=== PATIENT | female | born 1930 | race Caucasian/White ===

== ENCOUNTER 2016-12-16 01:36 | Emergency (ER) | payer MEDICARE, OTHER ==
[2016-12-16] MEDS ORDERED: ACETAMINOPHEN 325 MG TABLET PO ONE (04:19)
--- NOTE | 2016-12-16 04:21 | ER Document Report ---
ED Fall - General Chief Complaint: Fall Injury Stated Complaint: FALL LEFT ARM PAIN Time seen by provider: 04:20 Mode of Arrival: Ambulatory Information source: Patient TRAVEL OUTSIDE OF THE [place] IN LAST 30 DAYS: No - HPI Patient complains to provider of: trip and fall Occurred: Just prior to arrival Where: Home Context: Tripped Associated symptoms: None Location of injury/pain: Upper extremity, Lower extremity Quality of pain: Achy Severity: Mild Pain Level: 1 Notes: Patient is an 86-year-old female who presents to the emergency room complaining of trip and fall that occurred at home just prior to arrival, states she fell to the floor, landing on her left side, causing bruising and mild abrasions to her left upper extremity and just below her left knee, she denies a head injury or loss of consciousness, no chest pain or shortness of breath, last tetanus shot is up-to-date - Related data Allergies/Adverse Reactions: diazepam [From Valium] Allergy (Verified 12/16/16 01:58) fenoprofen calcium [From Nalfon] Allergy (Verified 12/16/16 01:58) oxaprozin [From Daypro] Allergy (Verified 12/16/16 01:58) Penicillins Allergy (Verified 12/16/16 01:58) Sulfa (Sulfonamide Antibiotics) Allergy (Verified 12/16/16 01:58) Past Medical History - General Information source: Patient - Social History Smoking Status: Never Smoker Chew tobacco use (# tins/day): No Frequency of alcohol use: None Drug Abuse: None Family History: None Patient has suicidal ideation: No Patient has homicidal ideation: No - Past Medical History Cardiac Medical History: Reports: Hx Hypertension Denies: Hx Coronary Artery Disease, Hx Heart Attack Pulmonary Medical History: Reports: Hx COPD Denies: Hx Asthma, Hx Bronchitis, Hx Pneumonia Neurological Medical History: Denies: Hx Cerebrovascular Accident, Hx Seizures Renal/ Medical History: Denies: Hx Peritoneal Dialysis Musculoskeltal Medical History: Denies Hx Arthritis Past Surgical History: Denies: Hx Hysterectomy, Hx Pacemaker - Immunizations Hx Diphtheria, Pertussis, Tetanus Vaccination: Yes Hx Pneumococcal Vaccination: 07/19/14 Review of Systems - Review of Systems Constitutional: No symptoms reported EENT: No symptoms reported Cardiovascular: No symptoms reported Respiratory: No symptoms reported Gastrointestinal: No symptoms reported Genitourinary: No symptoms reported Female Genitourinary: No symptoms reported Musculoskeletal: See HPI Skin: See HPI Hematologic/Lymphatic: Easy bruising - Patient takes Plavix Neurological/Psychological: No symptoms reported -: Yes All other systems reviewed and negative Physical Exam - Vital signs Vitals: Temp Pulse Resp BP Pulse Ox 98.2 F 93 18 179/96 H 96 12/16/16 01:50 12/16/16 01:50 12/16/16 01:50 12/16/16 01:50 12/16/16 01:50 Interpretation: Normal - General General appearance: Appears well, Alert - HEENT Head: Normocephalic, Atraumatic Eyes: Normal Pupils: PERRL - Respiratory Respiratory status: No respiratory distress Chest status: Nontender Breath sounds: Normal Chest palpation: Normal - Cardiovascular Rhythm: Regular Heart sounds: Normal auscultation Murmur: No - Abdominal Inspection: Normal Distension: No distension Bowel sounds: Normal Tenderness: Nontender Organomegaly: No organomegaly - Back Back: Normal, Nontender - Extremities General upper extremity: Normal ROM, Normal temperature General lower extremity: Nontender, Normal ROM, Normal temperature, Normal weight bearing. No: Ayana's sign Arm: Other - Patient with mild abrasions and ecchymoses on the dorsal surface of the left forearm and left upper arm, distal sensation and motor is intact, there is full range of motion at the wrist, the elbow and the shoulder, 2+ radial pulses Knee: Ecchymosis - Patient with ecchymosis just distal to the left patella anteriorly, mild tenderness to palpate, distal sensation and motor is intact - Neurological Neuro grossly intact: Yes Cognition: Normal Orientation: AAOx4 Sharlene Coma Scale Eye Opening: Spontaneous Sharlene Coma Scale Verbal: Oriented [place] Coma Scale Motor: Obeys Commands Sharlene Coma Scale Total: 15 Speech: Normal Motor strength normal: LUE, RUE, LLE, RLE Sensory: Normal - Psychological Associated symptoms: Normal affect, Normal mood - Skin Skin Temperature: Warm Skin Moisture: Dry Skin Color: Normal Course - Re-evaluation Re-evalutation: 12/16/16 04:39 Imaging shows no evidence of fracture or dislocation, patient was provided with Tylenol, advised ice and elevate affected extremities, follow up with primary care provider or return if symptoms worsen, patient and daughter at bedside acknowledge understanding and agreement with this plan - Vital Signs Vital signs: Temp Pulse Resp BP Pulse Ox 98.2 F 93 18 179/96 H 96 12/16/16 01:50 12/16/16 01:50 12/16/16 01:50 12/16/16 01:50 12/16/16 01:50 - Diagnostic Test Radiology reviewed: Image reviewed, Reports reviewed Discharge - Discharge Clinical Impression: Abrasion Contusion of left arm Qualifiers: Encounter type: initial encounter Qualified Code(s): S40.022A - Contusion of left upper arm, initial encounter Contusion of left lower leg Qualifiers: Encounter type: initial encounter Qualified Code(s): S80.12XA - Contusion of left lower leg, initial encounter Condition: Stable Disposition: HOME, SELF-CARE Instructions: Contusion ([facility]), Abrasions ([facility]), Ice & Elevation ([facility]) Additional Instructions: Follow up with your primary care provider in one to 2 days. Return to the emergency room immediately if symptoms worsen or any additional concerns. Forms: Return to Work
[2016-12-16 04:54] VITALS: BP 128/88
== END 2016-12-16 04:49 | disposition home or self-care (01) ==
LOC: ER 01:36
DX: S80.12XA Contusion of left lower leg, initial encounter (principal); S50.12XA Contusion of left forearm, initial encounter; S40.022A Contusion of left upper arm, initial encounter; W19.XXXA Unspecified fall, initial encounter; Y92.009 Unspecified place in unspecified non-institutional (private) residence as the place of occurrence of the external cause; I10 Essential (primary) hypertension; J44.9 Chronic obstructive pulmonary disease, unspecified; Z79.02 Long term (current) use of antithrombotics/antiplatelets; Z88.8 Allergy status to other drugs, medicaments and biological substances; Z88.0 Allergy status to penicillin; Z88.2 Allergy status to sulfonamides
CPT/HCPCS: 99283

== ENCOUNTER → 2017-01-01 | Outpatient (CLI) | payer MEDICARE, OTHER | LOC: RAD 07:36 | PROVIDERS: ATTEND Specialist | DX: R19.01 Right upper quadrant abdominal swelling, mass and lump (principal); R13.10 Dysphagia, unspecified | CPT/HCPCS: 74220; 76705 ==

== ENCOUNTER 2017-03-03 15:02 | Emergency (ER) | payer MEDICARE, OTHER ==
[2017-03-03] MEDS ORDERED: HYDROCODONE/ACETAMINOPHEN 5-325 MG TABLET PO ONE (15:42)
--- NOTE | 2017-03-03 15:50 | ER Document Report ---
ED Medical Screen (RME) - General Chief Complaint: Leg Pain Stated Complaint: LEFT LEG PAIN Time Seen by Provider: 03/03/17 15:38 Information source: Patient Notes: 87-year-old female who states pain to her left inner thigh and left tibia/ fibula. Patient denies any trauma. Patient does states she had a history of some cellulitis recently but states that it is "much improved". She denies any specific calf pain, or leg swelling. She denies any pain in the low back or hip. She denies any weakness or numbness to her leg. She does state that it started when she "stood up". TRAVEL OUTSIDE OF THE [place] IN LAST 30 DAYS: No - Related Data Allergies/Adverse Reactions: diazepam [From Valium] Allergy (Verified 03/03/17 15:21) fenoprofen calcium [From Nalfon] Allergy (Verified 03/03/17 15:21) oxaprozin [From Daypro] Allergy (Verified 03/03/17 15:21) Penicillins Allergy (Verified 03/03/17 15:21) Sulfa (Sulfonamide Antibiotics) Allergy (Verified 03/03/17 15:21) Past Medical History - Past Medical History Cardiac Medical History: Reports: Hx Hypertension Denies: Hx Coronary Artery Disease, Hx Heart Attack Pulmonary Medical History: Reports: Hx COPD Denies: Hx Asthma, Hx Bronchitis, Hx Pneumonia Neurological Medical History: Denies: Hx Cerebrovascular Accident, Hx Seizures Renal/ Medical History: Denies: Hx Peritoneal Dialysis Musculoskeltal Medical History: Denies Hx Arthritis Past Surgical History: Denies: Hx Hysterectomy, Hx Pacemaker - Immunizations Hx Diphtheria, Pertussis, Tetanus Vaccination: Yes Physical Exam - Vital signs Vitals: Temp Pulse Resp BP Pulse Ox 98.3 F 94 16 164/69 H 96 03/03/17 15:26 03/03/17 15:26 03/03/17 15:26 03/03/17 15:26 03/03/17 15:26 Course - Vital Signs Vital signs: Temp Pulse Resp BP Pulse Ox 98.3 F 94 16 164/69 H 96 03/03/17 15:26 03/03/17 15:26 03/03/17 15:26 03/03/17 15:26 03/03/17 15:26
[2017-03-03 16:52] LABS: ANION GAP 11 (5-19); BLOOD UREA NITROGEN 23 mg/dL (7-20); CARBON DIOXIDE 30 mmol/L (22-30); CHLORIDE 99 mmol/L (98-107); CREATININE RESULT 0.73 mg/dL (0.52-1.25); GLUCOSE 93 mg/dL (75-110); POTASSIUM 3.8 mmol/L (3.6-5.0); SODIUM 139.8 mmol/L (137-145)
[2017-03-03 16:58] LABS: ABSOLUTE EOSINOPHILS # (AUTO) 0.1 10^3/uL (0.0-0.6); ABSOLUTE LYMPHOCYTES (AUTO) 1.6 10^3/uL (0.5-4.7); ABSOLUTE MONOCYTES (AUTO) 0.7 10^3/uL (0.1-1.4); ABSOLUTE NEUT (AUTO) 2.7 10^3/uL (1.7-8.2); BASOPHILS % (AUTO) 0.6 % (0-2); EOSINOPHILS % (AUTO) 1.2 % (0-6); HEMOGLOBIN 13.5 g/dL (12.0-15.5); HGB HCT DIFFERENCE 0.5; LYMPHOCYTES % (AUTO) 31.2 % (13-45); MEAN CORPUSCULAR HEMOGLOBIN 32.7 pg (27.0-33.4); MEAN CORPUSCULAR HGB CONC 33.7 g/dL (32.0-36.0); MEAN CORPUSCULAR VOLUME 97 fl (80-97); MONOCYTES % (AUTO) 14.2 % (3-13); RED BLOOD COUNT 4.12 10^6/uL (3.72-5.28); RED CELL DISTRIBUTION WIDTH 13.5 % (11.5-14.0); SEGMENTED NEUTROPHILS % (AUTO) 52.8 % (42-78); WHITE BLOOD COUNT 5.1 10^3/uL (4.0-10.5)
--- NOTE | 2017-03-03 17:29 | XCELERA REPORT ---
[address] [address] Lower Extremity Venous Evaluation Name: TRINIDAD BALDWIN Age: 87 yrs Gender: Female : 1930 Patient Status: Preadmit Patient Location: ER Study Date: 03/03/2017 04:09 PM Procedure: Color flow and duplex imaging of the veins of the left lower extremity as well as the right Common Femoral vein. Reason For Study: left leg pain Ordering Physician: DAMIR YU Performed By: Guero Harris Right Sided Venous Evaluation The right common femoral vein is fully compressible. Spontaneous and phasic flow is present in the right common femoral vein. Left Sided Venous Evaluation Non compressible area with no Colour flow in a segment of one of two Peroneal veins. Otherwise normal vessel filling wall to wall, compression and augmentation as well as Colour flow down to the infrageniculate veins. Critical Findings Discussed with Jerel in the Er at about 1700. Interpretation Summary Very tiny area of Deep vein thrombosis in the left leg. : DAMIR YU > Sam Mejia
[2017-03-03 18:34] LABS: PROTHROMBIN TIME 14.2 SEC (11.4-15.4)
[2017-03-03] MEDS ORDERED: RIVAROXABAN 15 MG TABLET PO ONE (18:56)
--- NOTE | 2017-03-03 18:56 | ER Document Report ---
ED Extremity Problem, Lower - General Chief Complaint: Leg Pain Stated Complaint: LEFT LEG PAIN Time Seen by Provider: 03/03/17 15:38 Mode of Arrival: Ambulatory Information source: Patient TRAVEL OUTSIDE OF THE [place] IN LAST 30 DAYS: No - HPI Patient complains to provider of: Pain, Swelling Location: Leg Occurred: This afternoon Onset/Duration: Sudden Quality of pain: Achy Severity: Mild Pain Level: 2 Recent injury: No Associated symptoms: denies: Chest pain, Short of breath Exacerbated by: Movement Relieved by: Nothing Notes: Patient is an 87-year-old female with a history of A. fib and previous DVTs, who presents to the emergency Pain that started at approximately 3 PM today, she denies any shortness of breath or chest pain, has a history of DVTs with previous symptoms previously, her productive was recently decreased from 150 twice a day to 275 twice a day, she denies any other complaints, no injury or trauma - Related Data Allergies/Adverse Reactions: diazepam [From Valium] Allergy (Verified 03/03/17 15:21) fenoprofen calcium [From Nalfon] Allergy (Verified 03/03/17 15:21) oxaprozin [From Daypro] Allergy (Verified 03/03/17 15:21) Penicillins Allergy (Verified 03/03/17 15:21) Sulfa (Sulfonamide Antibiotics) Allergy (Verified 03/03/17 15:21) Past Medical History - General Information source: Patient - Social History Smoking Status: Never Smoker Family History: None Patient has suicidal ideation: No Patient has homicidal ideation: No - Past Medical History Cardiac Medical History: Reports: Hx Hypertension Denies: Hx Coronary Artery Disease, Hx Heart Attack Pulmonary Medical History: Reports: Hx COPD Denies: Hx Asthma, Hx Bronchitis, Hx Pneumonia Neurological Medical History: Denies: Hx Cerebrovascular Accident, Hx Seizures Renal/ Medical History: Denies: Hx Peritoneal Dialysis Musculoskeltal Medical History: Denies Hx Arthritis Past Surgical History: Denies: Hx Hysterectomy, Hx Pacemaker - Immunizations Hx Diphtheria, Pertussis, Tetanus Vaccination: Yes Hx Pneumococcal Vaccination: 07/19/14 Review of Systems - Review of Systems Constitutional: No symptoms reported EENT: No symptoms reported Cardiovascular: No symptoms reported Respiratory: No symptoms reported Gastrointestinal: No symptoms reported Genitourinary: No symptoms reported Female Genitourinary: No symptoms reported Musculoskeletal: See HPI Skin: No symptoms reported Hematologic/Lymphatic: No symptoms reported Neurological/Psychological: No symptoms reported -: Yes All other systems reviewed and negative Physical Exam - Vital signs Vitals: Temp Pulse Resp BP Pulse Ox 98.3 F 94 16 164/69 H 96 03/03/17 15:26 03/03/17 15:26 03/03/17 15:26 03/03/17 15:26 03/03/17 15:26 Interpretation: Normal - General General appearance: Appears well, Alert - HEENT Head: Normocephalic, Atraumatic Eyes: Normal Pupils: PERRL - Respiratory Respiratory status: No respiratory distress Chest status: Nontender Breath sounds: Normal Chest palpation: Normal - Cardiovascular Rhythm: Regular Heart sounds: Normal auscultation Murmur: No - Abdominal Inspection: Normal Distension: No distension Bowel sounds: Normal Tenderness: Nontender Organomegaly: No organomegaly - Back Back: Normal, Nontender - Extremities General upper extremity: Normal inspection, Nontender, Normal color, Normal ROM , Normal temperature General lower extremity: Normal inspection, Normal color, Normal ROM, Normal temperature. No: Ayana's sign Calf: Tender - Left calf tenderness - Neurological Neuro grossly intact: Yes Cognition: Normal Orientation: AAOx4 Sharlene Coma Scale Eye Opening: Spontaneous Sharlene Coma Scale Verbal: Oriented Sharlene Coma Scale Motor: Obeys Commands [place] Coma Scale Total: 15 Speech: Normal Motor strength normal: LUE, RUE, LLE, RLE Sensory: Normal - Psychological Associated symptoms: Normal affect, Normal mood - Skin Skin Temperature: Warm Skin Moisture: Dry Skin Color: Normal Course - Re-evaluation Re-evalutation: 03/03/17 18:53 Patient was discussed with on-call certified midwife, Dr. Nicolas, who recommends her productive be changed to Xarelto and she can see the patient in the office next week 03/03/17 19:00 This plan was discussed with patient and daughter at bedside who acknowledge understanding and agreement, patient was advised to stop taking pradaxa - Vital Signs Vital signs: Temp Pulse Resp BP Pulse Ox 98.3 F 94 16 164/69 H 96 03/03/17 15:26 03/03/17 15:26 03/03/17 15:26 03/03/17 15:26 03/03/17 15:26 - Laboratory Result Diagrams: 03/03/17 16:00 03/03/17 16:00 Laboratory results interpreted by me: 03/03/17 03/03/17 16:00 16:00 Plt Count 131 L Monocytes % 14.2 H BUN 23 H Discharge - Discharge Clinical Impression: DVT (deep venous thrombosis) Qualifiers: DVT location: lower extremity Affected thrombotic vein of extremity: other lower extremity vein Laterality: left Chronicity: acute Qualified Code(s): I82.492 - Acute embolism and thrombosis of other specified deep vein of left lower extremity Instructions: DVT Outpatient Treatment ([facility]) Additional Instructions: Follow up with your primary care provider, chauffeur and certified midwife within the next week. Return to the emergency room immediately if symptoms worsen or any additional concerns. Prescriptions: Rivaroxaban [Xarelto 15 mg Tablet] 15 mg PO BID #42 tablet Referrals: CORIE NICOLAS MD [ACTIVE STAFF] - Follow up as needed
[2017-03-03 19:17] VITALS: BP 114/72
== END 2017-03-03 19:15 | disposition home or self-care (01) ==
LOC: ER 15:02
DX: I82.492 Acute embolism and thrombosis of other specified deep vein of left lower extremity (principal); M79.605 Pain in left leg
CPT/HCPCS: 99284; 36415; 85025; 85610; 80048; 93971 ×2; A9270 ×2

== ENCOUNTER 2017-03-18 13:49 | Emergency (ER) | payer MEDICARE, OTHER ==
--- NOTE | 2017-03-18 16:58 | ER Document Report ---
ED Medical Screen (RME) - General Chief Complaint: Leg Swelling Stated Complaint: RED STREAKING ON LEG Time Seen by Provider: 03/18/17 16:52 Notes: 87 yo female c/o redness to left lower leg x 1 day. pt was diagnosed with DVT on Pradaxa. pt woke with increased redness to lower leg this am. leg aches , but otherwise on increased pain. [facility]. 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 [employer] Dr Rome Denies chest pain or shortness of breath. No abnormal bleeding. + hx/o A fib TRAVEL OUTSIDE OF THE [place] IN LAST 30 DAYS: No - Related Data Allergies/Adverse Reactions: diazepam [From Valium] Allergy (Verified 03/03/17 15:21) fenoprofen calcium [From Nalfon] Allergy (Verified 03/03/17 15:21) oxaprozin [From Daypro] Allergy (Verified 03/03/17 15:21) Penicillins Allergy (Verified 03/03/17 15:21) Sulfa (Sulfonamide Antibiotics) Allergy (Verified 03/03/17 15:21) Past Medical History - Past Medical History Cardiac Medical History: Reports: Hx Hypertension Denies: Hx Coronary Artery Disease, Hx Heart Attack Pulmonary Medical History: Reports: Hx COPD Denies: Hx Asthma, Hx Bronchitis, Hx Pneumonia Neurological Medical History: Denies: Hx Cerebrovascular Accident, Hx Seizures Renal/ Medical History: Denies: Hx Peritoneal Dialysis Musculoskeltal Medical History: Denies Hx Arthritis Past Surgical History: Denies: Hx Hysterectomy, Hx Pacemaker - Immunizations Hx Diphtheria, Pertussis, Tetanus Vaccination: Yes Physical Exam - Vital signs Vitals: Temp Pulse Resp BP Pulse Ox 98.1 F 71 16 160/77 H 95 03/18/17 14:27 03/18/17 14:27 03/18/17 14:27 03/18/17 14:27 03/18/17 14:27 Course - Vital Signs Vital signs: Temp Pulse Resp BP Pulse Ox 98.1 F 71 16 160/77 H 95 03/18/17 14:27 03/18/17 14:27 03/18/17 14:27 03/18/17 14:27 03/18/17 14:27
[2017-03-18 17:36] LABS: ABSOLUTE EOSINOPHILS # (AUTO) 0.1 10^3/uL (0.0-0.6); ABSOLUTE LYMPHOCYTES (AUTO) 1.8 10^3/uL (0.5-4.7); ABSOLUTE MONOCYTES (AUTO) 0.7 10^3/uL (0.1-1.4); ABSOLUTE NEUT (AUTO) 2.5 10^3/uL (1.7-8.2); BASOPHILS % (AUTO) 0.5 % (0-2); EOSINOPHILS % (AUTO) 1.3 % (0-6); MEAN CORPUSCULAR HGB CONC 33.4 g/dL (32.0-36.0); MEAN CORPUSCULAR VOLUME 99 fl (80-97); MONOCYTES % (AUTO) 13.3 % (3-13); RED BLOOD COUNT 4.25 10^6/uL (3.72-5.28); RED CELL DISTRIBUTION WIDTH 13.5 % (11.5-14.0); SEGMENTED NEUTROPHILS % (AUTO) 49.9 % (42-78); WHITE BLOOD COUNT 5.1 10^3/uL (4.0-10.5)
[2017-03-18 17:39] LABS: PROTHROMBIN TIME 14.1 SEC (11.4-15.4)
[2017-03-18 18:00] LABS: ALANINE AMINOTRANSFERASE 36 U/L (9-52); ALBUMIN 4.2 g/dL (3.5-5.0); ALKALINE PHOSPHATASE 93 U/L (38-126); ANION GAP 7 (5-19); ASPARTATE AMINO TRANSFERASE 34 U/L (14-36); BLOOD UREA NITROGEN 16 mg/dL (7-20); CALCIUM 9.6 mg/dL (8.4-10.2); CARBON DIOXIDE 33 mmol/L (22-30); CHLORIDE 99 mmol/L (98-107); CREATININE RESULT 0.67 mg/dL (0.52-1.25); GLUCOSE 92 mg/dL (75-110); POTASSIUM 4.2 mmol/L (3.6-5.0); SODIUM 139.4 mmol/L (137-145)
[2017-03-18 18:01] LABS: BILIRUBIN,DIRECT 0.1 mg/dL (0.0-0.4); BILIRUBIN,TOTAL 0.8 mg/dL (0.2-1.3); TOTAL PROTEIN 7.2 g/dL (6.3-8.2)
--- NOTE | 2017-03-18 20:33 | ER Document Report ---
ED General - General Chief Complaint: Leg Swelling Stated Complaint: RED STREAKING ON LEG Time Seen by Provider: 03/18/17 16:52 Notes: Patient is an 87-year-old female with past medical history of atrial fibrillation and a DVT of the left lower extremity diagnosed 2 weeks ago currently on dabigatran who presents with concerns of increased discoloration of the calf of her left lower extremity. The daughter is concerned that this could indicate the beginning of a cellulitis the patient was brought to the emergency department for further assessment. This discoloration occurred over 24 hours. The patient herself denies any actual symptoms including any pain to the area. She has not noted anything seem to prompt a color change in her skin. She has not seen her primary care doctor regarding today's concerns. She has been taking all anticoagulation as directed she denies any pain to the extremity, streaking redness, fever or constitutional symptoms. TRAVEL OUTSIDE OF THE [place] IN LAST 30 DAYS: No - Related Data Allergies/Adverse Reactions: diazepam [From Valium] Allergy (Verified 03/03/17 15:21) fenoprofen calcium [From Nalfon] Allergy (Verified 03/03/17 15:21) oxaprozin [From Daypro] Allergy (Verified 03/03/17 15:21) Penicillins Allergy (Verified 03/03/17 15:21) Sulfa (Sulfonamide Antibiotics) Allergy (Verified 03/03/17 15:21) Past Medical History - General Information source: Patient - Social History Smoking Status: Never Smoker Frequency of alcohol use: None Drug Abuse: None Lives with: Family Family History: Reviewed & Not Pertinent Patient has suicidal ideation: No Patient has homicidal ideation: No - Past Medical History Cardiac Medical History: Reports: Hx Atrial Fibrillation, Hx Hypertension Denies: Hx Coronary Artery Disease, Hx Heart Attack Pulmonary Medical History: Reports: Hx COPD Denies: Hx Asthma, Hx Bronchitis, Hx Pneumonia Neurological Medical History: Denies: Hx Cerebrovascular Accident, Hx Seizures Renal/ Medical History: Denies: Hx Peritoneal Dialysis Musculoskeltal Medical History: Denies Hx Arthritis Past Surgical History: Denies: Hx Hysterectomy, Hx Pacemaker - Immunizations Hx Diphtheria, Pertussis, Tetanus Vaccination: Yes Hx Pneumococcal Vaccination: 07/19/14 Review of Systems - Review of Systems Notes: Constitutional: Negative for fever. HENT: Negative for sore throat. Eyes: Negative for visual changes. Cardiovascular: Negative for chest pain. Respiratory: Negative for shortness of breath. Gastrointestinal: Negative for abdominal pain, vomiting or diarrhea. Genitourinary: Negative for dysuria. Musculoskeletal: Negative for back pain. Skin: Positive for discoloration of the left lower extremity Neurological: Negative for headaches, weakness or numbness. 10 point ROS negative except as marked above and in HPI. Physical Exam - Vital signs Vitals: Temp Pulse Resp BP Pulse Ox 98.1 F 71 16 160/77 H 95 03/18/17 14:27 03/18/17 14:27 03/18/17 14:27 03/18/17 14:27 03/18/17 14:27 Interpretation: Hypertensive Notes: PHYSICAL EXAMINATION: GENERAL: Well-appearing, well-nourished and in no acute distress. HEAD: Atraumatic, normocephalic. EYES: Pupils equal round and reactive to light, extraocular movements intact, sclera anicteric, conjunctiva are normal. ENT: nares patent, oropharynx clear without exudates. Moist mucous membranes. NECK: Normal range of motion, supple without lymphadenopathy LUNGS: Breath sounds clear to auscultation bilaterally and equal. No wheezes rales or rhonchi. HEART: Regular rate and rhythm without murmurs ABDOMEN: Soft, nontender, normoactive bowel sounds. No guarding, no rebound. No masses appreciated. EXTREMITIES: Normal range of motion, bruising of the distal left lower extremity below the level of the knee without any warmth, pain or appreciable edema NEUROLOGICAL: No focal neurological deficits. Moves all extremities spontaneously and on command. PSYCH: Normal mood, normal affect. SKIN: Warm, Dry, normal turgor, no rashes or lesions noted. Course - Re-evaluation Re-evalutation: 03/18/17 20:33 Patient presents with concerns of left lower extremity discoloration which is different today than yesterday. She does have a history of 2 DVTs in this extremity and is currently on dabigatran for this. She has no pain to the area and it is not clinically consistent with an acute cellulitis. This appears more like blood breakdown with movement towards the more posterior aspect of the leg. A repeat venous Doppler study does not show any remaining clot and I suspect the clot has involved in the setting of patient going on to a therapeutic dose of dabigatran. The remainder of her laboratories are unremarkable. I have recommended the patient continue her anticoagulation and follow-up with her primary care doctor. At this time will discharge with return precautions and follow-up recommendations. Verbal discharge instructions given a the bedside and opportunity for questions given. Medication warnings reviewed. Patient is in agreement with this plan and has verbalized understanding of return precautions and the need for primary care follow-up in the next 24-72 hours. - Vital Signs Vital signs: Temp Pulse Resp BP Pulse Ox 98.0 F 74 17 162/88 H 95 03/18/17 20:47 03/18/17 20:47 03/18/17 20:47 03/18/17 20:47 03/18/17 20:47 - Laboratory Result Diagrams: 03/18/17 17:15 03/18/17 17:15 Laboratory results interpreted by me: 03/18/17 03/18/17 17:15 17:15 MCV 99 H Plt Count 145 L Monocytes % 13.3 H Carbon Dioxide 33 H - Diagnostic Test Radiology reviewed: Reports reviewed Discharge - Discharge Clinical Impression: Lower extremity edema Condition: Good Disposition: HOME, SELF-CARE Additional Instructions: Your ultrasound shows that the clot has since resolved. Continue the dabigatran as prescribed. Follow-up with your primary doctor. Return for any additional concerns you may have. Referrals: ANGEL CARUSO, [Primary Care Provider] - Follow up as needed
--- NOTE | 2017-03-18 20:44 | RADIOLOGY REPORT (SQ) ---
EXAM DESCRIPTION: VENOUS UNILATERAL LOWER COMPLETED DATE/TIME: 03/18/2017 8:37 pm REASON FOR STUDY: recent DVT left leg, increased redness today COMPARISON: None. TECHNIQUE: Dynamic and static sargent scale and color images acquired of the right leg venous system. S elected spectral images acquired with additional compression and augmentation maneuvers. The contrala teral common femoral vein and saphenofemoral junction were also imaged. Images stored on PACS. LIMITATIONS: None. FINDINGS: COMMON FEMORAL: Normal phasicity, compression and augmentation. No visualized echogenic ma terial on sargent scale. No defects on color images. FEMORAL: Normal compression and augmentation. No visualized echogenic material on sargent scale. No defe cts on color images. POPLITEAL: Normal compression, augmentation. No visualized echogenic material on sargent scale. No defec ts on color images. CALF VESSELS: Normal compression, augmentation. No visualized echogenic material on sargent scale. No de fects on color images. GSV and SSV: Normal compression, augmentation. No visualized echogenic material on sargent scale. No def ects on color images. ANY DEEP VENOUS INSUFFICIENCY: Not evaluated. ANY EVIDENCE OF POPLITEAL CYST: No. OTHER: No other significant finding. CONTRALATERAL COMMON FEMORAL VEIN AND SAPHENOFEMORAL JUNCTION: Normal phasicity, compression and augmentation. No visualized echogenic material on sargent scale. No de fects on color images. IMPRESSION: NO EVIDENCE DVT OR SVT IN THE RIGHT LEG. TECHNICAL DOCUMENTATION: JOB ID: [id number] [employer]- All Rights Reserved
[2017-03-18 20:53] VITALS: BP 162/88
== END 2017-03-18 20:53 | disposition home or self-care (01) ==
LOC: ER 13:49
DX: R60.0 Localized edema (principal); L81.9 Disorder of pigmentation, unspecified; I10 Essential (primary) hypertension; J44.9 Chronic obstructive pulmonary disease, unspecified; Z86.718 Personal history of other venous thrombosis and embolism; Z79.02 Long term (current) use of antithrombotics/antiplatelets; Z88.8 Allergy status to other drugs, medicaments and biological substances; Z88.0 Allergy status to penicillin; Z88.2 Allergy status to sulfonamides
CPT/HCPCS: 36415; 80053; 85025; 85610; 93971; 99284

== ENCOUNTER → 2017-06-03 | Outpatient (CLI) | payer MEDICARE, OTHER ==
--- NOTE | 2017-06-05 13:57 | WOMENS IMAGING REPORT ---
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 LIMITATIONS: None. FINDINGS: LUMBAR SPINE: The bone mineral density (BMD) measured from L1-L4 in the AP projection correlates with a T-score of -3.0, which is osteoporotic as defined by the World Health Organization. This does include vertebral body endplate sclerosis and facet arthropathy. This represents a 6 to 7% increase in density since 2005. HIP: The bone mineral density (BMD) measured in the left femoral neck at the hip correlates with a T-score of -2.7, which is osteoporotic as defined by the World Health Organization. This is similar compare d to previous studies. IMPRESSION: 1. LUMBAR SPINE: Osteoporotic 2. HIP: Osteoporotic COMMENT: The World Health Organization defines low BMD as follows: T-score: Normal: Greater than -1.0 Osteopenia: Between -1.0 and -2.5 Osteoporosis: Less than -2.5 without fractures Established osteoporosis: Less than -2.5 with fractures In general, you may wish to consider: Diagnosis Treatment Follow-up DEXA Normal BMD Prevention 2-3 years Osteopenia Prevention/Therapy 1-2 years Osteoporosis Therapy Yearly TECHNICAL DOCUMENTATION: JOB ID: [id number] [employer]- All Rights Reserved
== END ==
LOC: WI 13:32
PROVIDERS: ATTEND Family Medicine
DX: M81.0 Age-related osteoporosis without current pathological fracture (principal)
CPT/HCPCS: 77080

== ENCOUNTER → 2017-06-10 | Outpatient (CLI) | payer MEDICARE, OTHER ==
--- NOTE | 2017-06-10 15:24 | WOMENS IMAGING REPORT ---
EXAM DESCRIPTION: BILAT SCREENING MAMMO W/CAD COMPLETED DATE/TIME: 06/10/2017 1:28 pm REASON FOR STUDY: ROUTINE SCREENING; Z12.31 Z12.31 ENCNTR SCREEN MAMMOGRAM FOR MALIGNANT NEOPLASM O F MESFIN COMPARISON: 2008, 2013 TECHNIQUE: Standard craniocaudal and mediolateral oblique views of each breast recorded using [employer] l acquisition. LIMITATIONS: None. FINDINGS: RIGHT BREAST MASSES: No suspicious masses. CALCIFICATIONS: No new or suspicious calcifications. ARCHITECTURAL DISTORTION: None. DEVELOPING DENSITY: None. ASYMMETRY: None noted. OTHER: No other significant findings. LEFT BREAST MASSES: Small mass at 6 o'clock, about 5 cm deep to the nipple. CALCIFICATIONS: No new or suspicious calcifications. ARCHITECTURAL DISTORTION: None. DEVELOPING DENSITY: None. ASYMMETRY: None noted. OTHER: No other significant findings. Read with the assistance of CAD. .[facility] - R2 Cenova Version 1.3 .[facility] Imaging - R2 Cenova Version 1.3 .[facility] Imaging - R2 Cenova Version 2.4 .[facility] - R2 Cenova Version 2.4 .[facility] - R2 Shrimp Trawler Version 9.2 IMPRESSION: Small mass left breast. BREAST DENSITY: b. There are scattered areas of fibroglandular density. BIRAD: 0 Incomplete: Needs Additional Imaging Evaluation and/or prior Mammograms for Comparison. RECOMMENDATION: RECOMMENDED FOLLOW-UP: True lateral, cone compression views and potential ultrasound of the left breast. The patient will be contacted for additional imaging. COMMENT: The patient has been notified of the results by letter per SA requirements. Additional no tification policies are in place for contacting patient with suspicious or incomplete findings. Quality ID #[id number]: The [employer] recommends an annual screening mammogram for women aged 40 years or over. This facility utilizes a reminder system to ensure that all patients receive reminder letters, and/or direct phone calls for appointments. This includes reminders for routine scr eening mammograms, diagnostic mammograms, or other Breast Imaging Interventions when appropriate. Th is patient will be placed in the appropriate reminder system. The [employer] (ACR) has developed recommendations for screening MRI of the breast s in certain patient populations, to be used in conjunction with mammography. Breast MRI surveillanc e may be appropriate for women with more than 20% lifetime risk of developing breast cancer as deter mined by genetic testing, significant family history of the disease, or history of mantle radiation f or Hodgkins Disease. ACR Practice Guidelines 2008. TECHNICAL DOCUMENTATION: FINDING NUMBER: (1) ASSESSMENT: (1) JOB ID: [id number] [employer]- All Rights Reserved
== END ==
LOC: WI 13:22
PROVIDERS: ATTEND Family Medicine
DX: Z12.31 Encounter for screening mammogram for malignant neoplasm of breast (principal)
CPT/HCPCS: 77067; G0202

== ENCOUNTER → 2017-07-01 | Outpatient (CLI) | payer MEDICARE, OTHER ==
--- NOTE | 2017-07-01 16:56 | WOMENS IMAGING REPORT ---
EXAM DESCRIPTION: BILAT DIAGNOSTIC MAMMO W/CAD; U/S BREAST UNILAT LIMITED COMPLETED DATE/TIME: 07/01/2017 1:17 pm; 07/01/2017 2:25 pm REASON FOR STUDY: LEFT BREAST MASS; BREAST LUMP N63 UNSPECIFIED LUMP IN BREAST COMPARISON: Multiple prior mammograms since 2008 TECHNIQUE: Cone compression craniocaudal and mediolateral oblique views of each breast recorded usin g digital acquisition. Bilateral 90 mediolateral views Bilateral breast ultrasound was performed. LIMITATIONS: None. FINDINGS: RIGHT BREAST MASSES: No suspicious masses. CALCIFICATIONS: No new or suspicious calcifications. ARCHITECTURAL DISTORTION: None. DEVELOPING DENSITY: None. ASYMMETRY: None noted. OTHER: Patient indicated a palpable nodule right breast 3 to 4 o'clock position 8 cm from the nipple. In this area mammographically, there are no focal findings. LEFT BREAST MASSES: Low-density well-circumscribed mammographic nodule with slightly lobular borders 6 o'clock po sition left breast. CALCIFICATIONS: No new or suspicious calcifications. ARCHITECTURAL DISTORTION: None. DEVELOPING DENSITY: None. ASYMMETRY: None noted. OTHER: No other significant finding. Read with the assistance of CAD: .[facility] - R2 [employer] Pattern Layout Technician Version 9.2 Bilateral breast ultrasound: On the right side medially, in the area of palpable abnormality indicated by the patient, a lipoma is present in the subcutaneous fat measuring 10 x 10 x 5 mm in size. This is a benign finding and requ ires no further follow-up. In the left breast 6 o'clock position, in the area of small mammographic nodule, a 7 mm echogenic nod ule is present with partial border loss. This could be a small papilloma. Malignancy could not enti rely be excluded. Ultrasound-guided core biopsy and post biopsy clip placement with follow-up two-vi ew mammogram recommended. IMPRESSION: No mammographic or sonographic evidence for malignancy right breast. 7 mm nodule left breast 6 o'clock position for which ultrasound-guided core biopsy, post biopsy clip placement with follow-up two-view mammogram recommended. BREAST DENSITY: b. There are scattered areas of fibroglandular density. BIRAD: Left breast BI-RADS 4 Suspicious. Biopsy should be considered. RECOMMENDATION: RECOMMENDED FOLLOW UP: Left breast biopsy, under ultrasound with post biopsy clip pl acement and follow-up two-view mammogram SPECIFIC INTERVENTION/IMAGING/CONSULTATION RECOMMENDED:As above COMMUNICATION:Patient notified by letter. Unable to reach the ordering physician by telephone COMMENT: The patient has been notified of the results by letter per SA requirements. Additional no tification policies are in place for contacting patient with suspicious or incomplete findings. Quality ID #[id number]: The [employer] recommends an annual screening mammogram for women aged 40 years or over. This facility utilizes a reminder system to ensure that all patients receive reminder letters, and/or direct phone calls for appointments. This includes reminders for routine scr eening mammograms, diagnostic mammograms, or other Breast Imaging Interventions when appropriate. Th is patient will be placed in the appropriate reminder system. The [employer] (ACR) has developed recommendations for screening MRI of the breast s in certain patient populations, to be used in conjunction with mammography. Breast MRI surveillanc e may be appropriate for women with more than 20% lifetime risk of developing breast cancer as deter mined by genetic testing, significant family history of the disease, or history of mantle radiation f or Hodgkins Disease. ACR Practice Guidelines 2008. TECHNICAL DOCUMENTATION: FINDING NUMBER: (1) ASSESSMENT: (1) JOB ID: [id number] [employer]- All Rights Reserved
--- NOTE | 2017-07-01 16:57 | WOMENS IMAGING REPORT ---
EXAM DESCRIPTION: BILAT DIAGNOSTIC MAMMO W/CAD; U/S BREAST UNILAT LIMITED COMPLETED DATE/TIME: 07/01/2017 1:17 pm; 07/01/2017 2:25 pm REASON FOR STUDY: LEFT BREAST MASS; BREAST LUMP N63 UNSPECIFIED LUMP IN BREAST COMPARISON: Multiple prior mammograms since 2008 TECHNIQUE: Cone compression craniocaudal and mediolateral oblique views of each breast recorded usin g digital acquisition. Bilateral 90 mediolateral views Bilateral breast ultrasound was performed. LIMITATIONS: None. FINDINGS: RIGHT BREAST MASSES: No suspicious masses. CALCIFICATIONS: No new or suspicious calcifications. ARCHITECTURAL DISTORTION: None. DEVELOPING DENSITY: None. ASYMMETRY: None noted. OTHER: Patient indicated a palpable nodule right breast 3 to 4 o'clock position 8 cm from the nipple. In this area mammographically, there are no focal findings. LEFT BREAST MASSES: Low-density well-circumscribed mammographic nodule with slightly lobular borders 6 o'clock po sition left breast. CALCIFICATIONS: No new or suspicious calcifications. ARCHITECTURAL DISTORTION: None. DEVELOPING DENSITY: None. ASYMMETRY: None noted. OTHER: No other significant finding. Read with the assistance of CAD: .[facility] - R2 Sustainability Manager Version 9.2 Bilateral breast ultrasound: On the right side medially, in the area of palpable abnormality indicated by the patient, a lipoma is present in the subcutaneous fat measuring 10 x 10 x 5 mm in size. This is a benign finding and requ ires no further follow-up. In the left breast 6 o'clock position, in the area of small mammographic nodule, a 7 mm echogenic nod ule is present with partial border loss. This could be a small papilloma. Malignancy could not enti rely be excluded. Ultrasound-guided core biopsy and post biopsy clip placement with follow-up two-vi ew mammogram recommended. IMPRESSION: No mammographic or sonographic evidence for malignancy right breast. 7 mm nodule left breast 6 o'clock position for which ultrasound-guided core biopsy, post biopsy clip placement with follow-up two-view mammogram recommended. BREAST DENSITY: b. There are scattered areas of fibroglandular density. BIRAD: Left breast BI-RADS 4 Suspicious. Biopsy should be considered. RECOMMENDATION: RECOMMENDED FOLLOW UP: Left breast biopsy, under ultrasound with post biopsy clip pl acement and follow-up two-view mammogram SPECIFIC INTERVENTION/IMAGING/CONSULTATION RECOMMENDED:As above COMMUNICATION:Patient notified by letter. Unable to reach the ordering physician by telephone COMMENT: The patient has been notified of the results by letter per SA requirements. Additional no tification policies are in place for contacting patient with suspicious or incomplete findings. Quality ID #[id number]: The [employer] recommends an annual screening mammogram for women aged 40 years or over. This facility utilizes a reminder system to ensure that all patients receive reminder letters, and/or direct phone calls for appointments. This includes reminders for routine scr eening mammograms, diagnostic mammograms, or other Breast Imaging Interventions when appropriate. Th is patient will be placed in the appropriate reminder system. The [employer] (ACR) has developed recommendations for screening MRI of the breast s in certain patient populations, to be used in conjunction with mammography. Breast MRI surveillanc e may be appropriate for women with more than 20% lifetime risk of developing breast cancer as deter mined by genetic testing, significant family history of the disease, or history of mantle radiation f or Hodgkins Disease. ACR Practice Guidelines 2008. TECHNICAL DOCUMENTATION: FINDING NUMBER: (1) ASSESSMENT: (1) JOB ID: [id number] [employer]- All Rights Reserved
== END ==
LOC: WI 12:50
PROVIDERS: ATTEND Family Medicine
DX: N63 Unspecified lump in breast (principal)
CPT/HCPCS: 76642; G0204; 77066

== ENCOUNTER 2017-08-18 17:18 | Emergency (ER) | payer MEDICARE, OTHER ==
--- NOTE | 2017-08-18 18:16 | ER Document Report ---
ED Medical Screen (RME) - General Chief Complaint: Headache Stated Complaint: DIZZY,HEAD PRESSURE Time Seen by Provider: 08/18/17 18:15 Notes: Patient is brought in by daughter. Patient said 2 days of elevated blood pressures with pressure on the top of her head. She is also been dizzy and weak. She states she does have a history of atrial fibrillation. TRAVEL OUTSIDE OF THE [place] IN LAST 30 DAYS: No - Related Data Allergies/Adverse Reactions: diazepam [From Valium] Allergy (Verified 08/18/17 17:27) fenoprofen calcium [From Nalfon] Allergy (Verified 08/18/17 17:27) oxaprozin [From Daypro] Allergy (Verified 08/18/17 17:27) Penicillins Allergy (Verified 08/18/17 17:27) Sulfa (Sulfonamide Antibiotics) Allergy (Verified 08/18/17 17:27) Past Medical History - Social History Chew tobacco use (# tins/day): No Frequency of alcohol use: None - Past Medical History Cardiac Medical History: Reports: Hx Atrial Fibrillation, Hx Hypertension Denies: Hx Coronary Artery Disease, Hx Heart Attack Pulmonary Medical History: Reports: Hx COPD Denies: Hx Asthma, Hx Bronchitis, Hx Pneumonia Neurological Medical History: Denies: Hx Cerebrovascular Accident, Hx Seizures Renal/ Medical History: Denies: Hx Peritoneal Dialysis GI Medical History: Reports: Hx Gastroesophageal Reflux Disease Musculoskeltal Medical History: Denies Hx Arthritis Past Surgical History: Denies: Hx Hysterectomy, Hx Pacemaker - Immunizations Hx Diphtheria, Pertussis, Tetanus Vaccination: Yes History of Influenza Vaccine for 07/2017 - 12/2017 Season: Yes Physical Exam - Vital signs Vitals: Temp Pulse Resp BP Pulse Ox 98.3 F 117 H 16 184/99 H 94 08/18/17 17:28 08/18/17 17:28 08/18/17 17:28 08/18/17 17:28 08/18/17 17:28 Course - Vital Signs Vital signs: Temp Pulse Resp BP Pulse Ox 98.3 F 117 H 16 184/99 H 94 08/18/17 17:28 08/18/17 17:28 08/18/17 17:28 08/18/17 17:28 08/18/17 17:28
[2017-08-18 18:31] LABS: ABSOLUTE EOSINOPHILS # (AUTO) 0.1 10^3/uL (0.0-0.6); ABSOLUTE LYMPHOCYTES (AUTO) 1.8 10^3/uL (0.5-4.7); ABSOLUTE MONOCYTES (AUTO) 0.7 10^3/uL (0.1-1.4); ABSOLUTE NEUT (AUTO) 3.5 10^3/uL (1.7-8.2); BASOPHILS % (AUTO) 0.3 % (0-2); EOSINOPHILS % (AUTO) 0.9 % (0-6); HEMATOCRIT 43.3 % (36.0-47.0); HEMOGLOBIN 14.8 g/dL (12.0-15.5); HGB HCT DIFFERENCE 1.1; LYMPHOCYTES % (AUTO) 29.3 % (13-45); MEAN CORPUSCULAR HEMOGLOBIN 33.8 pg (27.0-33.4); MEAN CORPUSCULAR HGB CONC 34.3 g/dL (32.0-36.0); MEAN CORPUSCULAR VOLUME 99 fl (80-97); MONOCYTES % (AUTO) 11.8 % (3-13); RED BLOOD COUNT 4.39 10^6/uL (3.72-5.28); SEGMENTED NEUTROPHILS % (AUTO) 57.7 % (42-78); WHITE BLOOD COUNT 6.1 10^3/uL (4.0-10.5)
[2017-08-18 18:49] LABS: ALANINE AMINOTRANSFERASE 46 U/L (9-52); ALBUMIN 4.7 g/dL (3.5-5.0); ALKALINE PHOSPHATASE 87 U/L (38-126); ANION GAP 12 (5-19); ASPARTATE AMINO TRANSFERASE 36 U/L (14-36); BILIRUBIN,DIRECT 0.3 mg/dL (0.0-0.4); BLOOD UREA NITROGEN 14 mg/dL (7-20); CALCIUM 10.1 mg/dL (8.4-10.2); CARBON DIOXIDE 32 mmol/L (22-30); CHLORIDE 99 mmol/L (98-107); CREATININE RESULT 0.87 mg/dL (0.52-1.25); GLUCOSE 153 mg/dL (75-110); POTASSIUM 4.3 mmol/L (3.6-5.0); SODIUM 142.9 mmol/L (137-145); TOTAL PROTEIN 7.7 g/dL (6.3-8.2)
[2017-08-18 19:03] LABS: APPEARANCE,URINE CLOUDY; BILIRUBIN,URINE NEGATIVE (NEGATIVE); GLUCOSE, URINE NEGATIVE (NEGATIVE); KETONES,URINE NEGATIVE (NEGATIVE); LEUKOCYTE ESTERASE,URINE MODERATE (NEGATIVE); NITRITE,URINE NEGATIVE (NEGATIVE); PROTEIN,URINE 100 mg/dL (NEGATIVE); URINE SPECIFIC GRAVITY 1.013; UROBILINOGEN,URINE NEGATIVE mg/dL (<2.0)
--- NOTE | 2017-08-18 19:16 | RADIOLOGY REPORT (SQ) ---
EXAM DESCRIPTION: CT HEAD WITHOUT COMPLETED DATE/TIME: 08/18/2017 7:00 pm REASON FOR STUDY: dizzy COMPARISON: None. TECHNIQUE: Axial images acquired through the brain without intravenous contrast. Images reviewed wi th bone, brain and subdural windows. Images stored on PACS. All CT scanners at this facility use dose modulation, iterative reconstruction, and/or weight based d osing when appropriate to reduce radiation dose to as low as reasonably achievable (ALARA). [facility]: Dose Right [facility]: CareDose [facility]: Dose Right [facility]: Teradose 4D [facility]: [email or web address] RADIATION DOSE: Up-to-date CT equipment and radiation dose reduction techniques were employed. CTDIv ol: 64.6 - 67.0 mGy. DLP: 2216 mGy-cm. mGy. LIMITATIONS: Motion. Streak artifact from aneurysm clip. FINDINGS: VENTRICLES: Mildly prominent. CEREBRUM: No masses. No hemorrhage. No midline shift. No evidence for acute infarction. CEREBELLUM: No masses. No hemorrhage. No alteration of density. No evidence for acute infarction. EXTRAAXIAL SPACES: No fluid collections. No masses. ORBITS AND GLOBE: No intra- or extraconal masses. Normal contour of globe without masses. CALVARIUM: Operative change on the left with aneurysm clip. PARANASAL SINUSES: No fluid or mucosal thickening. SOFT TISSUES: No mass or hematoma. OTHER: No other significant finding. IMPRESSION: Postoperative change with aneurysm clip. No acute hemorrhage or infarction identified. EVIDENCE OF ACUTE STROKE: NO. COMMENT: Quality ID # [id number]: Final reports with documentation of one or more dose reduction techniques (e.g., Automated exposure control, adjustment of the mA and/or kV according to patient size, use of iterative reconstruction technique) TECHNICAL DOCUMENTATION: JOB ID: [id number] [employer]- All Rights Reserved
--- NOTE | 2017-08-18 19:31 | ER Document Report ---
ED Blood Pressure Problem - General Chief Complaint: Headache Stated Complaint: DIZZY,HEAD PRESSURE Time Seen by Provider: 08/18/17 18:15 Mode of Arrival: Ambulatory Information source: Patient TRAVEL OUTSIDE OF THE [place] IN LAST 30 DAYS: No - Related Data Allergies/Adverse Reactions: diazepam [From Valium] Allergy (Verified 08/18/17 17:27) fenoprofen calcium [From Nalfon] Allergy (Verified 08/18/17 17:27) oxaprozin [From Daypro] Allergy (Verified 08/18/17 17:27) Penicillins Allergy (Verified 08/18/17 17:27) Sulfa (Sulfonamide Antibiotics) Allergy (Verified 08/18/17 17:27) Past Medical History - Social History Smoking Status: Never Smoker Chew tobacco use (# tins/day): No Frequency of alcohol use: None Family History: Reviewed & Not Pertinent Patient has suicidal ideation: No Patient has homicidal ideation: No - Past Medical History Cardiac Medical History: Reports: Hx Atrial Fibrillation, Hx Hypertension Denies: Hx Coronary Artery Disease, Hx Heart Attack Pulmonary Medical History: Reports: Hx COPD Denies: Hx Asthma, Hx Bronchitis, Hx Pneumonia Neurological Medical History: Denies: Hx Cerebrovascular Accident, Hx Seizures Renal/ Medical History: Denies: Hx Peritoneal Dialysis GI Medical History: Reports: Hx Gastroesophageal Reflux Disease Musculoskeltal Medical History: Denies Hx Arthritis Past Surgical History: Denies: Hx Hysterectomy, Hx Pacemaker - Immunizations Hx Diphtheria, Pertussis, Tetanus Vaccination: Yes Hx Pneumococcal Vaccination: 07/19/14 Physical Exam - Vital signs Vitals: Temp Pulse Resp BP Pulse Ox 98.3 F 117 H 16 184/99 H 94 08/18/17 17:28 08/18/17 17:28 08/18/17 17:28 08/18/17 17:28 08/18/17 17:28 Interpretation: Hypertensive, Tachycardic. No: Tachypneic Course - Vital Signs Vital signs: Temp Pulse Resp BP Pulse Ox 98.3 F 117 H 14 169/72 H 93 08/18/17 17:28 08/18/17 17:28 08/18/17 22:16 08/18/17 22:16 08/18/17 22:16 - Laboratory Result Diagrams: 08/18/17 18:21 08/18/17 18:21 Laboratory results interpreted by me: 08/18/17 08/18/17 08/18/17 18:21 18:21 18:40 MCV 99 H MCH 33.8 H Carbon Dioxide 32 H Glucose 153 H Urine Protein 100 H Ur Leukocyte Esterase MODERATE H Urine Ascorbic Acid 40 H - EKG Interpretation by Me EKG shows normal: [place], Intervals, QRS Complexes, ST-T Waves - DIFFUSE T ABNLS, NS. abnormal: Sinus rhythm Rate: Normal Rhythm: A.Fib Discharge - Discharge Clinical Impression: Essential hypertension Condition: Stable Disposition: HOME, SELF-CARE Additional Instructions: CONTINUE ALL OF YOUR PREVIOUS MEDS BEFORE. ADDITIONALLY, BEGIN TAKING CARTIA XT, 120mg IN THE EVENING. FOLLOW UP WITH YOUR PRIMARY CARE PROVIDER OR HUB INVENTORY SPECIALIST FOR BLOOD PRESSURE RE- CHECK IN THE NEXT 3-4 DAYS. RETURN TO E.R. IF PROBLEMS, ANY TIME. Prescriptions: Diltiazem HCl [Cartia Xt] 120 mg PO QPM #10 cap.er.24h Forms: Parent Work Note
[2017-08-18] MEDS ORDERED: DILTIAZEM HCL 60 MG TABLET PO ONE (20:05)
[2017-08-18] MEDS ORDERED: METOPROLOL TARTRATE 25 MG TABLET PO ONE (22:09)
[2017-08-18 23:45] VITALS: BP 139/80
--- NOTE | 2017-08-19 10:55 | EKG REPORT ---
SEVERITY:- ABNORMAL ECG - ATRIAL FIBRILLATION, V-RATE 60-123 CONSIDER ANTEROSEPTAL INFARCT NONSPECIFIC REPOL ABNORMALITY, DIFFUSE LEADS : Confirmed by: Jaya Lamb 19-Aug-2017 10:55:02
== END 2017-08-18 23:50 | disposition home or self-care (01) ==
LOC: ER 17:18
DX: R51 Headache (principal); R42 Dizziness and giddiness; I48.91 Unspecified atrial fibrillation; I10 Essential (primary) hypertension; J44.9 Chronic obstructive pulmonary disease, unspecified; Z88.0 Allergy status to penicillin; Z88.2 Allergy status to sulfonamides
CPT/HCPCS: 93005; 99285; 36415; 80162; 85025; 80053; 81001; 84484; 70450; 93010; A9270

== ENCOUNTER → 2018-01-20 | Outpatient (CLI) | payer MEDICARE, OTHER ==
--- NOTE | 2018-01-21 16:01 | RADIOLOGY REPORT (SQ) ---
EXAM DESCRIPTION: VENOUS BILATERAL LOWER COMPLETED DATE/TIME: 01/21/2018 11:17 am REASON FOR STUDY: EDEMA I73.9 PERIPHERAL VASCULAR DISEASE, UNSPECIFIED R60.0 LOCALIZED EDEMA COMPARISON: None. TECHNIQUE: Dynamic and static sargent scale and color images acquired of both lower extremity venous sy stems. Selected spectral images acquired with additional compression and augmentation maneuvers. Imag es stored on PACS. LIMITATIONS: None. FINDINGS: RIGHT LEG COMMON FEMORAL AND FEMORAL: Normal phasicity, compression and augmentation. No visualized echogenic m aterial on sargent scale. No defects on color images. POPLITEAL: Normal compression and augmentation. No visualized echogenic material on sargent scale. No de fects on color images. CALF VESSELS: Normal compression and augmentation. No visualized echogenic material on sargent scale. No defects on color image. GSV AND SSV: Normal compression. No visualized echogenic material on sargent scale. No defects on color images. ANY DEEP VENOUS INSUFFICIENCY: Not evaluated. ANY EVIDENCE OF POPLITEAL CYST: No. OTHER: No other significant finding. LEFT LEG COMMON FEMORAL AND FEMORAL: Normal phasicity, compression and augmentation. No visualized echogenic m aterial on sargent scale. No defects on color images. POPLITEAL: Normal compression and augmentation. No visualized echogenic material on sargent scale. No de fects on color images. CALF VESSELS: Normal compression and augmentation. No visualized echogenic material on sargent scale. No defects on color images. GSV AND SSV: Normal compression. No visualized echogenic material on sargent scale. No defects on color images. ANY DEEP VENOUS INSUFFICIENCY: Not evaluated. ANY EVIDENCE POPLITEAL CYST: No. OTHER: No other significant finding. IMPRESSION: NO EVIDENCE DVT OR SVT IN EITHER LEG. TECHNICAL DOCUMENTATION: JOB ID: [id number] [employer]- All Rights Reserved Reading location - IP/workstation name: [email or web address]
--- NOTE | 2018-01-21 16:03 | RADIOLOGY REPORT (SQ) ---
EXAM DESCRIPTION: ARTERIAL LOWER EXTREM BILAT COMPLETED DATE/TIME: 01/21/2018 11:17 am REASON FOR STUDY: PVD I73.9 PERIPHERAL VASCULAR DISEASE, UNSPECIFIED R60.0 LOCALIZED EDEMA COMPARISON: None. TECHNIQUE: Dynamic and static sargent scale and color images acquired of the lower extremity arteries. Additional selected spectral images recorded. ABIs recorded. LIMITATIONS: None. FINDINGS: RIGHT LEG: ABIS: Not performed due to pain INFLOW ARTERIES: Normal, no obstruction evident. FEMORAL ARTERIES:Multiphasic waveforms. Normal, no velocity elevation to suggest focal stenosis. Norm al color Doppler evaluation. No aneurysm. POPLITEAL ARTERY:Multiphasic waveforms. Normal, no velocity elevation to suggest focal stenosis. Norm al color Doppler evaluation. No aneurysm. PATENT TIBIOPERONEAL TRUNK AND 3 VESSEL RUNOFF: Yes, normal vessels. TBI: Not performed. OTHER: No other significant finding. LEFT LEG: ABIS: Not performed due to pain INFLOW ARTERIES: Normal, no obstruction evident. FEMORAL ARTERIES:Multiphasic waveforms. Normal, no velocity elevation to suggest focal stenosis. Norm al color Doppler evaluation. No aneurysm. POPLITEAL ARTERY:Multiphasic waveforms. Normal, no velocity elevation to suggest focal stenosis. Norm al color Doppler evaluation. No aneurysm. PATENT TIBIOPERONEAL TRUNK AND 3 VESSEL RUNOFF: There is some dampening of the systolic waveform in t he posterior tibial artery. TBI: Not performed. OTHER: No other significant finding. IMPRESSION: No hemodynamically significant stenoses or vascular occlusions are identified. ABIs wer e not performed due to pain. COMMENT: [facility] NORMAL: Greater than 1.0 MINIMAL DISEASE: 0.9 to 1.0 CLAUDICATION: 0.5 to 0.9 SEVERE ARTERIAL DISEASE: Less than 0.5 [facility] NORMAL: Greater than 1.0 (1.2 If Heavy Calcifications) NORMAL TO MILD ISCHEMIA: 0.8 to 1.0 MODERATE ISCHEMIA: 0.4 to 0.8 SEVERE ISCHEMIA: Less than 0.4 TECHNICAL DOCUMENTATION: JOB ID: [id number]- All Rights Reserved Reading location - IP/workstation name: [email or web address]
== END ==
LOC: SP 12:54
PROVIDERS: ATTEND Specialist
DX: I73.9 Peripheral vascular disease, unspecified (principal); R60.0 Localized edema
CPT/HCPCS: 93925; 93970

== ENCOUNTER 2018-03-15 20:01 | Emergency (ER) | payer MEDICARE, OTHER ==
[2018-03-15] MEDS ORDERED: ACETAMINOPHEN 325 MG TABLET PO ONE ×2 (20:46→22:52)
[2018-03-15] MEDS ORDERED: MORPHINE SULFATE IR 15 MG TABLET PO ONE (22:52)
[2018-03-15] MEDS ORDERED: GABAPENTIN 300 MG CAPSULE PO ONE (22:52)
[2018-03-15] MEDS ORDERED: LIDOCAINE 5% (700 MG) TRANSDERMAL ADH..PATCH TP ONE (22:52)
--- NOTE | 2018-03-15 23:13 | ER Document Report ---
ED General - General Chief Complaint: Neck Pain < 24hrs old Stated Complaint: RIGHT NECK,SHOULDER,ARM PAIN Time Seen by Provider: 03/15/18 22:22 Notes: Patient is an 88-year-old female with medical history as recorded who presents with 24 hours of right-sided neck pain, right shoulder pain and right trapezius pain that intermittently radiates down into her right arm. She describes as a severe, constant, aching pain. Moving her neck worsens the pain. She has tried Tylenol with minimal to no improvement of the pain. She denies any focal weakness or numbness. No headache. No recent trauma to the area. She denies any history of similar symptoms in the past. She has not seen her primary doctor regarding today's concerns. TRAVEL OUTSIDE OF THE [place] IN LAST 30 DAYS: No - Related Data Allergies/Adverse Reactions: diazepam [From Valium] Allergy (Verified 03/15/18 20:03) fenoprofen calcium [From Nalfon] Allergy (Verified 03/15/18 20:03) oxaprozin [From Daypro] Allergy (Verified 03/15/18 20:03) Penicillins Allergy (Verified 03/15/18 20:03) Sulfa (Sulfonamide Antibiotics) Allergy (Verified 03/15/18 20:03) Past Medical History - General Information source: Patient, Relative - Social History Smoking Status: Never Smoker Chew tobacco use (# tins/day): No Frequency of alcohol use: None Drug Abuse: None Lives with: Family Family History: Reviewed & Not Pertinent Patient has suicidal ideation: No Patient has homicidal ideation: No - Past Medical History Cardiac Medical History: Reports: Hx Atrial Fibrillation, Hx Hypertension Denies: Hx Coronary Artery Disease, Hx Heart Attack Pulmonary Medical History: Reports: Hx COPD Denies: Hx Asthma, Hx Bronchitis, Hx Pneumonia Neurological Medical History: Denies: Hx Cerebrovascular Accident, Hx Seizures Renal/ Medical History: Denies: Hx Peritoneal Dialysis GI Medical History: Reports: Hx Gastroesophageal Reflux Disease Musculoskeltal Medical History: Denies Hx Arthritis Past Surgical History: Denies: Hx Hysterectomy, Hx Pacemaker - Immunizations Hx Diphtheria, Pertussis, Tetanus Vaccination: Yes Hx Pneumococcal Vaccination: 07/19/14 Review of Systems - Review of Systems Notes: Constitutional: Negative for fever. HENT: Negative for sore throat. Eyes: Negative for visual changes. Cardiovascular: Negative for chest pain. Respiratory: Negative for shortness of breath. Gastrointestinal: Negative for abdominal pain, vomiting or diarrhea. Genitourinary: Negative for dysuria. Musculoskeletal: Positive for right neck pain, right shoulder pain and right arm pain Skin: Negative for rash. Neurological: Negative for headaches, weakness or numbness. 10 point ROS negative except as marked above and in HPI. Physical Exam - Vital signs Vitals: Temp Pulse Resp BP Pulse Ox 99.6 F 106 H 14 159/78 H 99 03/15/18 20:10 03/15/18 20:10 03/15/18 20:10 03/15/18 20:10 03/15/18 20:10 Interpretation: Hypertensive, Tachycardic Notes: PHYSICAL EXAMINATION: GENERAL: Appears uncomfortable but no acute distress HEAD: Atraumatic, normocephalic. EYES: Pupils equal round and reactive to light, extraocular movements intact, sclera anicteric, conjunctiva are normal. ENT: nares patent, oropharynx clear without exudates. Moist mucous membranes. NECK: Normal range of motion, supple without lymphadenopathy, pain on palpation of the right sternocleidomastoid and right trapezius. Diffuse tenderness to the midline of C5 through 7. LUNGS: Breath sounds clear to auscultation bilaterally and equal. No wheezes rales or rhonchi. HEART: Regular rate and rhythm without murmurs ABDOMEN: Soft, nontender, normoactive bowel sounds. No guarding, no rebound. No masses appreciated. EXTREMITIES: Normal range of motion, no pitting or edema. No cyanosis. NEUROLOGICAL: No focal neurological deficits. Moves all extremities spontaneously and on command. RMU motor and sensory distribution is intact bilaterally. 5 out of 5 biceps and triceps strength bilaterally. PSYCH: Moderately anxious SKIN: Warm, Dry, normal turgor, no rashes or lesions noted. Course - Re-evaluation Re-evalutation: 03/15/18 23:12 Patient presents with 24 hours of severe pain to the right shoulder, trapezius muscle and right posterior neck with radiation of the pain down to her right arm. Clinical history most consistent with a C6 VII nerve root advanced age will proceed with CTA of the neck to evaluate for carotid artery dissection as an alternative more worrisome pathology. Will also obtain a CT of the cervical spine. Patient denies any history of acute fall or injury that would be indicative of an acute cervical spine fracture but again given her advanced age and localization of midline tenderness to the lower cervical spine will complete the study to evaluate for any acute fractures. 03/16/18 02:31 Patient has had improvement of her pain at this time point. CTA of the neck and CT of cervical spine without any acute findings. Shoulder x-ray unremarkable. At this time will discharge with return precautions and follow- up recommendations. Verbal discharge instructions given a the bedside and opportunity for questions given. Medication warnings reviewed. Patient is in agreement with this plan and has verbalized understanding of return precautions and the need for primary care follow-up in the next 24-72 hours. - Vital Signs Vital signs: Temp Pulse Resp BP Pulse Ox 98.7 F 93 20 130/76 H 98 03/16/18 03:18 03/15/18 22:28 03/16/18 02:15 03/16/18 03:18 03/16/18 03:18 - Laboratory Result Diagrams: 03/15/18 23:48 03/15/18 23:48 Laboratory results interpreted by me: 03/15/18 03/15/18 23:48 23:48 MCV 98 H MCH 33.5 H Monocytes % 15.9 H Absolute Monocytes 1.5 H Chloride 94 L Carbon Dioxide 34 H Glucose 111 H Calcium 10.6 H - Diagnostic Test Radiology reviewed: Image reviewed, Reports reviewed Discharge - Discharge Clinical Impression: Cervical nerve root impingement, Neck pain on right side Right shoulder pain Qualifiers: Chronicity: acute Qualified Code(s): M25.511 - Pain in right shoulder Condition: Good Disposition: HOME, SELF-CARE Additional Instructions: Your pain is related to impingement one of your cervical nerve roots and will take 6-8 weeks completely resolved. For your pain: Take acetaminophen 1000 mg every 6 hours together as needed for pain. If this does not control your pain you may take 15 mg of oral morphine every 4 hours as needed. Please be very careful about using the oral morphine and only use this for severe pain. In addition to this, purchased the product that is sold [id number] cold Aspercreme with lidocaine. Apply to the affected area per bottle instructions. You should also apply heat to the area regularly using an electric heating plant pad. Return to the emergency department immediately if you develop weakness, loss of sensation, chest pain, shortness of breath, have worsening of your symptoms, or any other symptoms that are worrisome to you. Prescriptions: Morphine Sulfate [Morphine Ir 15 mg Tablet] 15 mg PO Q4HP PRN #12 tablet PRN Reason: Gabapentin 300 mg PO TID #90 capsule Forms: Parent Work Note
[2018-03-15 23:58] LABS: ABSOLUTE BASOPHILS # (AUTO) 0.1 10^3/uL (0.0-0.2); ABSOLUTE LYMPHOCYTES (AUTO) 1.7 10^3/uL (0.5-4.7); ABSOLUTE MONOCYTES (AUTO) 1.5 10^3/uL (0.1-1.4); ABSOLUTE NEUT (AUTO) 6.2 10^3/uL (1.7-8.2); BASOPHILS % (AUTO) 0.5 % (0-2); EOSINOPHILS % (AUTO) 0.2 % (0-6); HEMOGLOBIN 14.7 g/dL (12.0-15.5); LYMPHOCYTES % (AUTO) 17.9 % (13-45); MEAN CORPUSCULAR HEMOGLOBIN 33.5 pg (27.0-33.4); MEAN CORPUSCULAR HGB CONC 34.3 g/dL (32.0-36.0); MEAN CORPUSCULAR VOLUME 98 fl (80-97); MONOCYTES % (AUTO) 15.9 % (3-13); PLATELET COUNT 158 10^3/uL (150-450); RED CELL DISTRIBUTION WIDTH 13.7 % (11.5-14.0); SEGMENTED NEUTROPHILS % (AUTO) 65.5 % (42-78); TOTAL CELLS COUNTED % (AUTO) 100 %; WHITE BLOOD COUNT 9.5 10^3/uL (4.0-10.5)
[2018-03-16 00:22] LABS: ANION GAP 11 (5-19); BLOOD UREA NITROGEN 20 mg/dL (7-20); CALCIUM 10.6 mg/dL (8.4-10.2); CARBON DIOXIDE 34 mmol/L (22-30); CHLORIDE 94 mmol/L (98-107); GLUCOSE 111 mg/dL (75-110); POTASSIUM 3.7 mmol/L (3.6-5.0); SODIUM 139.2 mmol/L (137-145)
[2018-03-16] MEDS ORDERED: HYDROMORPHONE HCL INJ/PF 2 MG/ML AMPULE IV ONE (01:36)
--- NOTE | 2018-03-16 01:45 | RADIOLOGY REPORT (SQ) ---
EXAM DESCRIPTION: Right shoulder, 3 views CLINICAL HISTORY: neck pain, rue weakness COMPARISON: None. FINDINGS: No acute fracture or dislocation. Degenerative change of the acromioclavicular joint. No acute abnormalities of visualized right hemithorax. IMPRESSION: No acute fracture or dislocation.
--- NOTE | 2018-03-16 01:48 | RADIOLOGY REPORT (SQ) ---
EXAM DESCRIPTION: CLINICAL HISTORY: neck pain, rue weakness COMPARISON: None available TECHNIQUE: Axial CT of the cervical spine obtained without contrast. FINDINGS: Alignment of the cervical spine is maintained without evidence of subluxation. The atlantoaxial, atlantodental, and occipitoatlantal intervals are preserved. No fracture identified. Vertebral body height preserved. Prevertebral soft tissues are unremarkable. Moderate multilevel loss of intervertebral disc height with endplate spondylosis, facet arthropathy, and uncovertebral spurring with mild osseous neural foraminal narrowing. No definite central canal osseous narrowing. Visualized skull base is intact. No fracture of the visualized facial bones. Visualized mastoid air cells and paranasal sinuses are well aerated. Visualized thyroid is unremarkable. No cervical lymphadenopathy. No pneumothorax in the visualized lung apices. Atherosclerotic calcification of the carotid arteries. DLP: 208.74 mGy-cm IMPRESSION: 1. No acute fracture or subluxation of the cervical spine. 2. Moderate degenerative change throughout the cervical spine. This exam was performed according to our departmental dose-optimization program, which includes automated exposure control, adjustment of the mA and/or kV according to patient size and/or use of iterative reconstruction technique.
--- NOTE | 2018-03-16 01:53 | RADIOLOGY REPORT (SQ) ---
EXAM DESCRIPTION: CTA of the neck with contrast. CLINICAL HISTORY: 88 years Female, neck pain, rue weakness COMPARISON: None. TECHNIQUE: Axial CTA images of the neck obtained following the uncomplicated intravenous administration of 70 mL Isovue-370. 3-D/MIP reformatted images available. FINDINGS: The aortic arch has normal branch configuration. With 3 vessels arising from the aortic arch. Atherosclerotic calcification of the aortic arch. The origin of the carotid arteries is patent bilaterally. Right carotid: The right common carotid artery is widely patent. The common carotid artery bifurcates into patent internal and external carotid arteries. Mild atherosclerotic plaque. 0% stenosis of the right internal carotid artery by NASCET criteria. No evidence of dissection or occlusion. Left carotid:The left common carotid artery is widely patent. The common carotid artery bifurcates into patent internal and external carotid arteries. Mild atherosclerotic plaque. 0% stenosis of the left internal carotid artery by NASCET criteria. No evidence of dissection or occlusion. The visualized intracranial contents demonstrate no definite acute abnormalities. Atherosclerotic calcification of the paraclinoid internal carotid arteries. Vertebral arteries: The origin of the vertebral arteries is widely patent. No evidence of stenosis, occlusion, or aneurysm involving the cervical vertebral arteries. Dominant left vertebral artery. Cervical soft tissues demonstrate no definite acute abnormalities. Fossa of Rosenmuller are normal. No definite abnormalities of visualized parotid or submandibular glands. No definite cervical lymphadenopathy. No pneumothorax in the visualized lung apices. Degenerative change of the cervical spine. IMPRESSION: 1. No evidence of stenosis involving the carotid or vertebral arteries.
[2018-03-16 03:27] VITALS: BP 130/76
== END 2018-03-16 03:27 | disposition home or self-care (01) ==
LOC: ER 20:01
DX: M54.12 Radiculopathy, cervical region (principal); M54.2 Cervicalgia; M25.511 Pain in right shoulder; M79.601 Pain in right arm; M54.6 Pain in thoracic spine; I10 Essential (primary) hypertension
CPT/HCPCS: 99284; 96374; 36415; 85025; 80048; 84484; 73030; 70498; 72125; A9270 ×3; J1170

== ENCOUNTER 2018-03-17 22:41 | Emergency (ER) | payer MEDICARE, OTHER ==
--- NOTE | 2018-03-18 01:50 | ER Document Report ---
ED General - General Chief Complaint: Passed Out Prior to Arrival Stated Complaint: POSSIBLE SYNCOPE Time Seen by Provider: 03/18/18 01:50 Notes: Patient is an 88-year-old female presents emergency department today status post syncope. Daughter states that they were sitting at the table when her mom stated off and then her head relax but she denies any pullout loss of posture, tonic-clonic motions. States that she was able to come to when she was getting out of the chair to lie her down. She denies any focal weakness, facial drooping, difficulty speaking or swallowing. Past medical history significant for history of DVT, sleep apnea, atrial fibrillation on Pradaxa, hypertension, GERD, congestive heart failure, osteoporosis, macular degeneration, thyroid nodules, asthma, factor V Leiden deficiency Past surgical history significant for intracranial aneurysm clipping in 1987 Allergies to penicillin, Valium, sulfa, no phone, Daypro Primary care is with Dr. Ricci TRAVEL OUTSIDE OF THE [place] IN LAST 30 DAYS: No - Related Data Allergies/Adverse Reactions: diazepam [From Valium] Allergy (Verified 03/15/18 20:03) fenoprofen calcium [From Nalfon] Allergy (Verified 03/15/18 20:03) oxaprozin [From Daypro] Allergy (Verified 03/15/18 20:03) Penicillins Allergy (Verified 03/15/18 20:03) Sulfa (Sulfonamide Antibiotics) Allergy (Verified 03/15/18 20:03) Past Medical History - Social History Smoking Status: Former Smoker Family History: Reviewed & Not Pertinent - Past Medical History Cardiac Medical History: Reports: Hx Atrial Fibrillation, Hx Hypertension Denies: Hx Coronary Artery Disease, Hx Heart Attack Pulmonary Medical History: Reports: Hx COPD Denies: Hx Asthma, Hx Bronchitis, Hx Pneumonia Neurological Medical History: Denies: Hx Cerebrovascular Accident, Hx Seizures Renal/ Medical History: Denies: Hx Peritoneal Dialysis GI Medical History: Reports: Hx Gastroesophageal Reflux Disease Musculoskeltal Medical History: Denies Hx Arthritis Past Surgical History: Denies: Hx Hysterectomy, Hx Pacemaker - Immunizations Hx Diphtheria, Pertussis, Tetanus Vaccination: Yes Hx Pneumococcal Vaccination: 07/19/14 Review of Systems - Review of Systems Constitutional: Malaise. denies: Chills, Fever EENT: No symptoms reported Cardiovascular: No symptoms reported Respiratory: No symptoms reported Gastrointestinal: No symptoms reported Genitourinary: No symptoms reported Musculoskeletal: See HPI Neurological/Psychological: See HPI -: Yes All other systems reviewed and negative Physical Exam - Vital signs Vitals: Temp Pulse Resp BP Pulse Ox 97.5 F 95 18 129/52 H 94 03/17/18 23:19 03/17/18 23:19 03/17/18 23:19 03/17/18 23:19 03/17/18 23:19 - Notes Notes: PHYSICAL EXAM GENERAL: Alert, interacts well. HEAD: Normocephalic, atraumatic. EYES: Pupils equal, round, and reactive to light. Extraocular movements intact. ENT: Oral mucosa moist, tongue midline. NECK: Full range of motion. Supple. Trachea midline. LUNGS: Clear to auscultation bilaterally, no wheezes, rales, or rhonchi. No respiratory distress. HEART: Regular rate and rhythm. No murmurs, gallops, or rubs. ABDOMEN: Soft, nondistended, nontender. No guarding, rebound, or rigidity.. Bowel sounds present in all 4 quadrants. EXTREMITIES: Moves all 4 extremities spontaneously. No edema, radial and dorsalis pedis pulses 2/4 bilaterally. No cyanosis. NEUROLOGICAL: Alert and oriented x4. Face symmetric. Tongue protrudes midline. Extraocular motions intact. Pupils are 2 mm and equally reactive. Normal speech, normal gait. 5 out of 5 strength in both the distal and proximal upper and lower extremities bilaterally. Sensation is grossly intact throughout. Finger to nose testing normal. Pronator drift normal. PSYCH: Normal affect, normal mood. SKIN: Warm, dry, normal turgor. No rashes or lesions noted. Course - Re-evaluation Re-evalutation: 03/18/18 05:28 Presentation of syncope of unclear etiology. Patient lab evaluation, orthostatic vital signs revealed likely underlying dehydration. Did review medications with daughter and she states that she has been taking 80 mg twice daily of Lasix for the past 3 weeks. Review of the labs showed that recent kidney function is new since Thursday it is possibly related to diuretic use as well as IV contrast that was received for CTA of the neck. Patient normotensive , alert, without focal neurologic deficits at time of arrival. Denies syncope was during exertion. No preceding symptoms of palpitations, chest pain, or shortness of breath. Patient asymptomatic at time of arrival. EKG is without evidence of HCOM, right heart strain, ST changes to suggest ischemia, prolong QTc, delta wave, epsilon wave, or Brugada syndrome. Patient denies any family history of sudden cardiac , personal history of of structural heart disease. Patient denies any symptoms to suggest an acute PE, DE, TAD, SAH, seizure, or acute GI bleed as the etiology of their syncope today. On exam, no murmurs to suggest critical aortic stenosis as possible etiology. Based on overall clinical history, exam findings, vitals, and patients appearance, I feel it is safe for patient to be discharged home at this time with close outpatient follow-up and strict return precautions. Patient is in agreement with this plan, has verbalized indications for return to ED, and questions have been answered. - Vital Signs Vital signs: Temp Pulse Resp BP Pulse Ox 97.5 F 82 19 147/70 H 95 03/17/18 23:19 03/18/18 02:50 03/18/18 05:45 03/18/18 05:45 03/18/18 05:45 - Laboratory Result Diagrams: 03/18/18 02:30 03/18/18 02:30 Laboratory results interpreted by me: 03/18/18 03/18/18 03/18/18 02:27 02:30 02:30 MCH 33.6 H Monocytes % 16.8 H VBG pH VBG HCO3 Potassium 3.4 L Chloride 94 L Carbon Dioxide 35 H BUN 30 H Est GFR ( Amer) 49 L Est GFR (Non-Af Amer) 41 L Glucose 160 H Calcium 10.6 H NT-Pro-B Natriuret Pep Total Protein 6.2 L Ur Leukocyte Esterase MODERATE H Urine Ascorbic Acid 40 H 03/18/18 03/18/18 02:30 03:45 MCH Monocytes % VBG pH 7.45 H VBG HCO3 33.7 H Potassium Chloride Carbon Dioxide BUN Est GFR ( Amer) Est GFR (Non-Af Amer) Glucose Calcium NT-Pro-B Natriuret Pep 846 H Total Protein Ur Leukocyte Esterase Urine Ascorbic Acid - Diagnostic Test Radiology reviewed: Image reviewed, Reports reviewed Discharge - Discharge Clinical Impression: Syncope and collapse, Dehydration Condition: Good Disposition: HOME, SELF-CARE Instructions: Dehydration ([facility]), Intravenous (IV) Fluids ([facility]), Syncopal Episode ([facility]) Additional Instructions: Please decrease your Lasix to 40 mg twice a day and follow-up with Dr. Ricci tomorrow. Referrals: LUKE CHRISTENSEN MD [Primary Care Provider] - Follow up tomorrow
[2018-03-18 02:43] LABS: ABSOLUTE LYMPHOCYTES (AUTO) 1.1 10^3/uL (0.5-4.7); ABSOLUTE MONOCYTES (AUTO) 1.1 10^3/uL (0.1-1.4); ABSOLUTE NEUT (AUTO) 4.5 10^3/uL (1.7-8.2); BASOPHILS % (AUTO) 0.4 % (0-2); EOSINOPHILS % (AUTO) 0.5 % (0-6); HEMATOCRIT 39.1 % (36.0-47.0); HEMOGLOBIN 13.5 g/dL (12.0-15.5); LYMPHOCYTES % (AUTO) 16.8 % (13-45); MEAN CORPUSCULAR HEMOGLOBIN 33.6 pg (27.0-33.4); MEAN CORPUSCULAR HGB CONC 34.4 g/dL (32.0-36.0); MEAN CORPUSCULAR VOLUME 97 fl (80-97); MONOCYTES % (AUTO) 16.8 % (3-13); PLATELET COUNT 156 10^3/uL (150-450); RED BLOOD COUNT 4.02 10^6/uL (3.72-5.28); RED CELL DISTRIBUTION WIDTH 13.2 % (11.5-14.0); SEGMENTED NEUTROPHILS % (AUTO) 65.5 % (42-78); TOTAL CELLS COUNTED % (AUTO) 100 %; WHITE BLOOD COUNT 6.8 10^3/uL (4.0-10.5)
[2018-03-18 02:46] LABS: APPEARANCE,URINE SLIGHTLY-CLOUDY; BILIRUBIN,URINE NEGATIVE (NEGATIVE); COLOR,URINE YELLOW; GLUCOSE, URINE NEGATIVE (NEGATIVE); KETONES,URINE NEGATIVE (NEGATIVE); LEUKOCYTE ESTERASE,URINE MODERATE (NEGATIVE); NITRITE,URINE NEGATIVE (NEGATIVE); PROTEIN,URINE NEGATIVE (NEGATIVE); UROBILINOGEN,URINE NEGATIVE mg/dL (<2.0)
[2018-03-18 02:54] LABS: ALANINE AMINOTRANSFERASE 32 U/L (9-52); ALBUMIN 3.6 g/dL (3.5-5.0); ALKALINE PHOSPHATASE 69 U/L (38-126); ANION GAP 12 (5-19); ASPARTATE AMINO TRANSFERASE 25 U/L (14-36); BILIRUBIN,DIRECT 0.2 mg/dL (0.0-0.4); BILIRUBIN,TOTAL 0.4 mg/dL (0.2-1.3); BLOOD UREA NITROGEN 30 mg/dL (7-20); CALCIUM 10.6 mg/dL (8.4-10.2); CARBON DIOXIDE 35 mmol/L (22-30); CHLORIDE 94 mmol/L (98-107); CREATINE KINASE 39 U/L (30-135); GLUCOSE 160 mg/dL (75-110); POTASSIUM 3.4 mmol/L (3.6-5.0); SODIUM 141.4 mmol/L (137-145); TOTAL PROTEIN 6.2 g/dL (6.3-8.2)
[2018-03-18] MEDS ORDERED: NORMAL SALINE 1000 ML 1,000 ML IV ONE (03:07)
[2018-03-18 03:13] LABS: CREATINE KINASE MB 0.91 ng/mL (<4.55)
[2018-03-18 03:14] LABS: TROPONIN I < 0.012 ng/mL
[2018-03-18 03:56] LABS: VENOUS BLOOD BASE EXCESS 8.3 mmol/L; VENOUS BLOOD HCO3 33.7 mmol/L (20-32); VENOUS BLOOD PCO2 49.8 mmHg (35-63); VENOUS BLOOD PH 7.45 (7.30-7.42)
--- NOTE | 2018-03-18 04:27 | RADIOLOGY REPORT (SQ) ---
EXAM DESCRIPTION: CT of the head without contrast. CLINICAL HISTORY: syncope COMPARISON: 08/18/2017 TECHNIQUE: Axial CT of the head obtained from the skull apex to the skull base without contrast. FINDINGS: No acute intracranial hemorrhage identified. No mass, mass effect, shift of the midline, abnormal extra-axial fluid collection or CT evidence of acute ischemic change identified. The ventricular system and sulcal spaces are mildly enlarged compatible with mild cerebral atrophy. Left-sided aneurysm clip is stable. Scattered areas of hypodensity throughout the supratentorial white matter are nonspecific and may be related to chronic small vessel ischemic change. The visualized paranasal sinuses and the mastoids are clear. No skull fracture identified. Prior left craniotomy. Visualized orbits and globes are unremarkable. Atherosclerotic calcification of the intracranial internal carotid arteries. DLP: 990.56 mGy-cm IMPRESSION: 1. No acute intracranial abnormality by CT criteria. This exam was performed according to our departmental dose-optimization program, which includes automated exposure control, adjustment of the mA and/or kV according to patient size and/or use of iterative reconstruction technique.
[2018-03-18 06:27] VITALS: BP 147/70
--- NOTE | 2018-03-18 09:00 | EKG REPORT ---
SEVERITY:- ABNORMAL ECG - ATRIAL FIBRILLATION, V-RATE 72-103 NONSPECIFIC REPOL ABNORMALITY, DIFFUSE LEADS : Confirmed by: Jaya Lamb 18-Mar-2018 08:59:59
== END 2018-03-18 06:15 | disposition home or self-care (01) ==
LOC: ER 22:41
DX: R55 Syncope and collapse (principal); E86.0 Dehydration; R53.81 Other malaise; I48.91 Unspecified atrial fibrillation; I10 Essential (primary) hypertension; J44.9 Chronic obstructive pulmonary disease, unspecified; Z88.0 Allergy status to penicillin; Z88.2 Allergy status to sulfonamides; Z87.891 Personal history of nicotine dependence; Z86.718 Personal history of other venous thrombosis and embolism; Z79.02 Long term (current) use of antithrombotics/antiplatelets
CPT/HCPCS: 93005; 99285; 96360; 36415; 82553; 82550; 85025; 80053; 81001; 84484; 82803; 83880; 70450; 93010; J7030

== ENCOUNTER → 2018-06-17 | Outpatient (CLI) | payer MEDICARE, OTHER ==
--- NOTE | 2018-06-17 16:27 | WOMENS IMAGING REPORT ---
EXAM DESCRIPTION: BILAT SCREENING MAMMO W/CAD COMPLETED DATE/TIME: 06/17/2018 1:26 pm REASON FOR STUDY: SCREENING [id number] ENCNTR SCREEN MAMMOGRAM FOR MALIGNANT NEOPLASM OF MESFIN COMPARISON: [id number] TECHNIQUE: Standard craniocaudal and mediolateral oblique views of each breast recorded using digita l acquisition. LIMITATIONS: None. FINDINGS: RIGHT BREAST MASSES: No suspicious masses. CALCIFICATIONS: No new or suspicious calcifications. ARCHITECTURAL DISTORTION: None. DEVELOPING DENSITY: None. ASYMMETRY: None noted. OTHER: No other significant findings. LEFT BREAST MASSES: No suspicious masses. CALCIFICATIONS: No new or suspicious calcifications. ARCHITECTURAL DISTORTION: None. DEVELOPING DENSITY: Lower inner quadrant about 4 cm deep to the nipple. ASYMMETRY: None noted. OTHER: No other significant findings. Read with the assistance of CAD. .[facility] - R2 Cenova Version 1.3 .[facility] Imaging - R2 Cenova Version 1.3 .[facility] Imaging - R2 Cenova Version 2.4 .[facility] [place] - R2 Cenova Version 2.4 .[facility] - R2 [employer] Version 9.2 IMPRESSION: Developing density left breast. BREAST DENSITY: b. There are scattered areas of fibroglandular density. BIRAD: 0 Incomplete: Needs Additional Imaging Evaluation and/or prior Mammograms for Comparison. RECOMMENDATION: RECOMMENDED FOLLOW-UP: True lateral cone compression views and potential ultrasound of the left breast. The patient will be contacted for additional imaging. COMMENT: The patient has been notified of the results by letter per SA requirements. Additional no tification policies are in place for contacting patient with suspicious or incomplete findings. Quality ID #[id number]: The [employer] recommends an annual screening mammogram for women aged 40 years or over. This facility utilizes a reminder system to ensure that all patients receive reminder letters, and/or direct phone calls for appointments. This includes reminders for routine scr eening mammograms, diagnostic mammograms, or other Breast Imaging Interventions when appropriate. Th is patient will be placed in the appropriate reminder system. The [employer] (ACR) has developed recommendations for screening MRI of the breast s in certain patient populations, to be used in conjunction with mammography. Breast MRI surveillanc e may be appropriate for women with more than 20% lifetime risk of developing breast cancer as deter mined by genetic testing, significant family history of the disease, or history of mantle radiation f or Hodgkins Disease. ACR Practice Guidelines 2008. TECHNICAL DOCUMENTATION: FINDING NUMBER: (1) ASSESSMENT: (1) JOB ID: [id number] [employer]- All Rights Reserved Reading location - IP/workstation name: [email or web address]
== END ==
LOC: WI 13:10
PROVIDERS: ATTEND Family Medicine
DX: Z12.31 Encounter for screening mammogram for malignant neoplasm of breast (principal)
CPT/HCPCS: 77067

== ENCOUNTER 2018-07-05 13:17 | Emergency (ER) | payer MEDICARE, OTHER ==
--- NOTE | 2018-07-05 14:28 | ER Document Report ---
ED Medical Screen (RME) - General Chief Complaint: General Weakness Stated Complaint: WEAKNESS, SHAKING Time Seen by Provider: 07/05/18 14:26 Notes: 88 years old female with a history of CHF, has run out of the park, was sweating and drinking a lot of water and frequently urinating. Therefore she was brought to the ED. She also had shortness of breath but no chest pain. On examination-lower half of the bilateral lung field has inspiratory crackles and rales. TRAVEL OUTSIDE OF THE [place] IN LAST 30 DAYS: No - Related Data Allergies/Adverse Reactions: diazepam [From Valium] Allergy (Verified 03/15/18 20:03) fenoprofen calcium [From Nalfon] Allergy (Verified 03/15/18 20:03) oxaprozin [From Daypro] Allergy (Verified 03/15/18 20:03) Penicillins Allergy (Verified 03/15/18 20:03) Sulfa (Sulfonamide Antibiotics) Allergy (Verified 03/15/18 20:03) Past Medical History - Past Medical History Cardiac Medical History: Reports: Hx Atrial Fibrillation, Hx Hypertension Denies: Hx Coronary Artery Disease, Hx Heart Attack Pulmonary Medical History: Reports: Hx COPD Denies: Hx Asthma, Hx Bronchitis, Hx Pneumonia Neurological Medical History: Denies: Hx Cerebrovascular Accident, Hx Seizures Renal/ Medical History: Denies: Hx Peritoneal Dialysis GI Medical History: Reports: Hx Gastroesophageal Reflux Disease Musculoskeltal Medical History: Denies Hx Arthritis Past Surgical History: Denies: Hx Hysterectomy, Hx Pacemaker - Immunizations Hx Diphtheria, Pertussis, Tetanus Vaccination: Yes History of Influenza Vaccine for 07/2017 - 12/2017 Season: Yes Physical Exam - Vital signs Vitals: Pulse Resp BP Pulse Ox 69 18 140/63 H 96 07/05/18 13:57 07/05/18 13:57 07/05/18 13:57 07/05/18 13:57 Course - Vital Signs Vital signs: Temp Pulse Resp BP Pulse Ox 69 18 140/63 H 96 07/05/18 13:57 07/05/18 13:57 07/05/18 13:57 07/05/18 13:57 Doctor's Discharge - Discharge Referrals: LUKE CHRISTENSEN MD [Primary Care Provider] - Follow up as needed
[2018-07-05 15:18] LABS: ABSOLUTE EOSINOPHILS # (AUTO) 0.1 10^3/uL (0.0-0.6); ABSOLUTE LYMPHOCYTES (AUTO) 1.5 10^3/uL (0.5-4.7); ABSOLUTE NEUT (AUTO) 3.1 10^3/uL (1.7-8.2); BASOPHILS % (AUTO) 0.6 % (0-2); EOSINOPHILS % (AUTO) 1.6 % (0-6); HEMATOCRIT 41.6 % (36.0-47.0); HEMOGLOBIN 14.4 g/dL (12.0-15.5); LYMPHOCYTES % (AUTO) 26.1 % (13-45); MEAN CORPUSCULAR HEMOGLOBIN 34.1 pg (27.0-33.4); MEAN CORPUSCULAR HGB CONC 34.6 g/dL (32.0-36.0); MEAN CORPUSCULAR VOLUME 99 fl (80-97); MONOCYTES % (AUTO) 17.5 % (3-13); PLATELET COUNT 149 10^3/uL (150-450); RED BLOOD COUNT 4.22 10^6/uL (3.72-5.28); RED CELL DISTRIBUTION WIDTH 13.5 % (11.5-14.0); SEGMENTED NEUTROPHILS % (AUTO) 54.2 % (42-78); TOTAL CELLS COUNTED % (AUTO) 100 %; WHITE BLOOD COUNT 5.7 10^3/uL (4.0-10.5)
[2018-07-05 15:53] LABS: CREATINE KINASE MB 1.52 ng/mL (<4.55)
[2018-07-05 15:59] LABS: TROPONIN I < 0.012 ng/mL
--- NOTE | 2018-07-05 16:09 | RADIOLOGY REPORT (SQ) ---
EXAM DESCRIPTION: CHEST SINGLE VIEW COMPLETED DATE/TIME: 07/05/2018 3:47 pm REASON FOR STUDY: Shortness of breath COMPARISON: None. NUMBER OF VIEWS: One view. TECHNIQUE: Single frontal radiographic view of the chest acquired. LIMITATIONS: None. FINDINGS: LUNGS AND PLEURA: No opacities, masses or pneumothorax. No pleural effusion. Atelectasis at the right base. MEDIASTINUM AND HILAR STRUCTURES: No masses or contour abnormality. HEART AND VASCULATURE: Cardiac enlargement. Vascular congestion. BONES: No acute findings. HARDWARE: None in the chest. OTHER: No other significant finding. IMPRESSION: CARDIAC ENLARGEMENT. VASCULAR CONGESTION. Atelectasis at the right base. TECHNICAL DOCUMENTATION: JOB ID: [id number] [employer]- All Rights Reserved Reading location - IP/workstation name: [email or web address]
--- NOTE | 2018-07-05 18:49 | ER Document Report ---
ED General - General Chief Complaint: General Weakness Stated Complaint: WEAKNESS, SHAKING Time Seen by Provider: 07/05/18 14:26 Notes: Patient is a 88-year-old female that presents to the emergency department for chief complaint of weakness. History is provided by both the patient and the patient's family was at bedside. He reports the patient has been having decreased appetite since yesterday, and has been experiencing some urinary frequency, they have not had power or air-conditioning, and they are worried that she is getting dehydrated. She has had some nausea but no vomiting. She denies having any chest pain, shortness of breath, difficulty breathing, headaches, lightheadedness, dizziness, abdominal pain, dysuria or hematuria. He states she has been drinking a lot of plain water, but not having much oral food intake over the last few days. The daughter reports that the patient is on a water pill, she believes that it is hydrochlorothiazide and furosemide, which she has withheld over the last 2 days because they felt she was getting dehydrated, but they also noticed that her edema in her legs has gotten worse as well. 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 Family History: Reviewed and noncontributory for presenting illness Allergies: Reviewed, see documented allergy list. REVIEW OF SYSTEMS: Unless otherwise stated in this report the patient's positive and negative responses for review of systems for constitutional, eyes, ENT, cardiovascular, respiratory, gastrointestinal, neurological, genitourinary, musculoskeletal, and integumentary systems and related systems to the presenting problem are either as stated in the HPI or were not pertinent or were negative for the symptoms and/or complaints related to the presenting medical problem. PHYSICAL EXAMINATION: Vital signs reviewed, nursing noted reviewed. GENERAL: Elderly female, well-appearing, well-nourished and in no acute distress. HEAD: Atraumatic, normocephalic. EYES: Eyes appear normal, extraocular movements intact, sclera anicteric, conjunctiva are normal. ENT: nares patent, oropharynx clear without exudates. Moist mucous membranes. NECK: Normal range of motion, supple without lymphadenopathy LUNGS: Breath sounds clear to auscultation bilaterally and equal. No wheezes rales or rhonchi. HEART: Heart rate normal, rhythm irregularly irregular ABDOMEN: Soft, nontender, normoactive bowel sounds. No rebound, guarding, or rigidity. No masses appreciated. EXTREMITIES: Nontender, good range of motion, 1+ pitting pedal edema bilaterally , equal, no erythema associated NEUROLOGICAL: No focal neurological deficits. Moves all extremities spontaneously Motor and sensory grossly intact on exam. PSYCH: Normal mood, normal affect. SKIN: Warm, Dry, normal turgor, no rashes or lesions noted on exposed skin TRAVEL OUTSIDE OF THE [place] IN LAST 30 DAYS: No - Related Data Allergies/Adverse Reactions: diazepam [From Valium] Allergy (Verified 03/15/18 20:03) fenoprofen calcium [From Nalfon] Allergy (Verified 03/15/18 20:03) oxaprozin [From Daypro] Allergy (Verified 03/15/18 20:03) Penicillins Allergy (Verified 03/15/18 20:03) Sulfa (Sulfonamide Antibiotics) Allergy (Verified 03/15/18 20:03) Past Medical History - Social History Smoking Status: Never Smoker Chew tobacco use (# tins/day): No Frequency of alcohol use: None Drug Abuse: None Family History: Reviewed & Not Pertinent Patient has suicidal ideation: No Patient has homicidal ideation: No - Past Medical History Cardiac Medical History: Reports: Hx Atrial Fibrillation, Hx Hypertension Denies: Hx Coronary Artery Disease, Hx Heart Attack Pulmonary Medical History: Reports: Hx COPD Denies: Hx Asthma, Hx Bronchitis, Hx Pneumonia Neurological Medical History: Denies: Hx Cerebrovascular Accident, Hx Seizures Renal/ Medical History: Denies: Hx Peritoneal Dialysis GI Medical History: Reports: Hx Gastroesophageal Reflux Disease Musculoskeletal Medical History: Denies Hx Arthritis Past Surgical History: Denies: Hx Hysterectomy, Hx Pacemaker - Immunizations Hx Diphtheria, Pertussis, Tetanus Vaccination: Yes Hx Pneumococcal Vaccination: 07/19/14 Physical Exam - Vital signs Vitals: Pulse Resp BP Pulse Ox 69 18 140/63 H 96 07/05/18 13:57 07/05/18 13:57 07/05/18 13:57 07/05/18 13:57 Course - Re-evaluation Re-evalutation: Patient seen and examined vital signs reviewed. Laboratory data and imaging were ordered as appropriate for the patient's presenting symptoms and complaint, with consideration of any critical or life threatening conditions that may be associated with their obtained history and exam as noted above. Results were reviewed when available and demonstrated mild hyponatremia, 130, chest x-ray demonstrated mild vascular congestion, however the patient was not having any orthopnea, or complaint of shortness of breath. Urinalysis was not convincing of urinary tract infection. The patient was re-evaluated and was stable, no specific complaints Evaluation was most consistent with his weakness, likely secondary to mild hyponatremia, I believe this is most likely secondary to the patient missing Lasix dosing, in combination with polydipsia, recommend her resuming her Lasix, and to have her follow-up with her primary care physician regarding this. She is also encouraged to drink Pedialyte or sports drinks as opposed to plain water. Patient's daughter was at bedside and agreed to this plan of care will help the patient follow-up Results were discussed with the patient at this point, after careful consideration I feel that that patient can be discharged from the emergency department, the patient was educated treatments and reasons to return to the emergency department based on their presumed diagnosis as noted above, they were advised to followup with a primary care physician in 2-3 days. Patient was agreeable to plan of care. *Note is created using voice recognition software and may contain spelling, syntax or grammatical errors. Laboratory 07/05/18 07/05/18 07/05/18 15:00 15:00 15:00 WBC 5.7 RBC 4.22 Hgb 14.4 Hct 41.6 MCV 99 H MCH 34.1 H MCHC 34.6 RDW 13.5 Plt Count 149 L Seg Neutrophils % 54.2 Lymphocytes % 26.1 Monocytes % 17.5 H Eosinophils % 1.6 Basophils % 0.6 Absolute Neutrophils 3.1 Absolute Lymphocytes 1.5 Absolute Monocytes 1.0 Absolute Eosinophils 0.1 Absolute Basophils 0.0 Sodium Cancelled Potassium Cancelled Chloride Cancelled Carbon Dioxide Cancelled Anion Gap Cancelled BUN Cancelled Creatinine Cancelled Est GFR ( Amer) Cancelled Est GFR (Non-Af Amer) Cancelled Glucose Cancelled Calcium Cancelled Total Bilirubin Cancelled Direct Bilirubin Cancelled Neonat Total Bilirubin Cancelled Neonat Direct Bilirubin Cancelled Neonat Indirect Bili Cancelled AST Cancelled ALT Cancelled Alkaline Phosphatase Cancelled Creatine Kinase Cancelled CK-MB (CK-2) 1.52 Troponin I < 0.012 Total Protein Cancelled Albumin Cancelled Urine Color Urine Appearance Urine pH Ur Specific [place] Urine Protein Urine Glucose (UA) Urine Ketones Urine Blood Urine Nitrite Urine Bilirubin Urine Urobilinogen Ur Leukocyte Esterase Urine WBC (Auto) Urine RBC (Auto) Urine Bacteria (Auto) Urine Mucus (Auto) Urine Ascorbic Acid 07/05/18 07/05/18 07/05/18 18:20 18:20 19:05 WBC RBC Hgb Hct MCV MCH MCHC RDW Plt Count Seg Neutrophils % Lymphocytes % Monocytes % Eosinophils % Basophils % Absolute Neutrophils Absolute Lymphocytes Absolute Monocytes Absolute Eosinophils Absolute Basophils Sodium 130.3 L Potassium 3.9 Chloride 93 L Carbon Dioxide 30 Anion Gap 7 BUN 16 Creatinine 0.68 Est GFR ( Amer) > 60 Est GFR (Non-Af Amer) > 60 Glucose 102 Calcium 9.1 Total Bilirubin 0.6 Direct Bilirubin 0.3 Neonat Total Bilirubin Not Reportable Neonat Direct Bilirubin Not Reportable Neonat Indirect Bili Not Reportable AST 30 ALT 33 Alkaline Phosphatase 66 Creatine Kinase 78 CK-MB (CK-2) Troponin I < 0.012 Total Protein 7.0 Albumin 4.2 Urine Color YELLOW Urine Appearance CLEAR Urine pH 6.0 Ur Specific [place] 1.007 Urine Protein NEGATIVE Urine Glucose (UA) NEGATIVE Urine Ketones NEGATIVE Urine Blood NEGATIVE Urine Nitrite NEGATIVE Urine Bilirubin NEGATIVE Urine Urobilinogen NEGATIVE Ur Leukocyte Esterase TRACE H Urine WBC (Auto) 1 Urine RBC (Auto) 0 Urine Bacteria (Auto) TRACE Urine Mucus (Auto) RARE Urine Ascorbic Acid NEGATIVE Chest X-Ray 07/05/18 14:27 IMPRESSION: CARDIAC ENLARGEMENT. VASCULAR CONGESTION. Atelectasis at the right base. - Vital Signs Vital signs: Temp Pulse Resp BP Pulse Ox 97.6 F 83 16 182/95 H 97 07/05/18 21:15 07/05/18 21:15 07/05/18 21:15 07/05/18 21:15 07/05/18 21:15 - Laboratory Result Diagrams: 07/05/18 15:00 07/05/18 18:20 Laboratory results interpreted by me: 07/05/18 07/05/18 07/05/18 15:00 18:20 19:05 MCV 99 H MCH 34.1 H Plt Count 149 L Monocytes % 17.5 H Sodium 130.3 L Chloride 93 L Ur Leukocyte Esterase TRACE H Discharge - Discharge Clinical Impression: Hyponatremia, Generalized weakness Condition: Stable Disposition: HOME, SELF-CARE Instructions: Weakness ([facility]) Additional Instructions: Please return to the emergency department if you have any worsening, or concern of your symptoms. Please return to the emergency department if you develop chest pain, difficulty breathing, severe abdominal pain, or ongoing vomiting. Please follow-up with your primary care physician in 2-3 days and any other recommended physicians. If prescribed, take all medications as directed. If you have any questions or concerns do not hesitate to return the emergency department for evaluation. Continue taking your furosemide 40 mg twice daily as previously prescribed, please drink sports drinks, or Pedialyte, and set of plain water. If her symptoms worsen or do not improve, do not hesitate to return to the emergency department. Referrals: LUKE CHRISTENSEN MD [Primary Care Provider] - Follow up in 3-5 days
[2018-07-05 18:55] LABS: ALANINE AMINOTRANSFERASE 33 U/L (9-52); ALBUMIN 4.2 g/dL (3.5-5.0); ALKALINE PHOSPHATASE 66 U/L (38-126); ANION GAP 7 (5-19); ASPARTATE AMINO TRANSFERASE 30 U/L (14-36); BILIRUBIN,DIRECT 0.3 mg/dL (0.0-0.4); BILIRUBIN,TOTAL 0.6 mg/dL (0.2-1.3); BLOOD UREA NITROGEN 16 mg/dL (7-20); CALCIUM 9.1 mg/dL (8.4-10.2); CARBON DIOXIDE 30 mmol/L (22-30); CHLORIDE 93 mmol/L (98-107); CREATINE KINASE 78 U/L (30-135); GLUCOSE 102 mg/dL (75-110); POTASSIUM 3.9 mmol/L (3.6-5.0); SODIUM 130.3 mmol/L (137-145)
[2018-07-05 19:41] LABS: APPEARANCE,URINE CLEAR; COLOR,URINE YELLOW; GLUCOSE, URINE NEGATIVE (NEGATIVE)
[2018-07-05 19:42] LABS: BILIRUBIN,URINE NEGATIVE (NEGATIVE); KETONES,URINE NEGATIVE (NEGATIVE); LEUKOCYTE ESTERASE,URINE TRACE (NEGATIVE); NITRITE,URINE NEGATIVE (NEGATIVE); PROTEIN,URINE NEGATIVE (NEGATIVE); URINE SPECIFIC GRAVITY 1.007; UROBILINOGEN,URINE NEGATIVE mg/dL (<2.0)
[2018-07-05 21:17] VITALS: BP 182/95
== END 2018-07-05 21:00 | disposition home or self-care (01) ==
LOC: ER 13:17
DX: R53.1 Weakness (principal); E87.1 Hypo-osmolality and hyponatremia; I11.0 Hypertensive heart disease with heart failure; I50.9 Heart failure, unspecified
CPT/HCPCS: 36415; 71045; 80053; 81001; 82550; 82553; 84484; 85025; 99285

== ENCOUNTER → 2018-08-04 | Outpatient (CLI) | payer MEDICARE, OTHER ==
--- NOTE | 2018-08-04 15:04 | WOMENS IMAGING REPORT ---
EXAM DESCRIPTION: LEFT DIAGNOSTIC MAMMO W/CAD; U/S BREAST UNILAT LIMITED COMPLETED DATE/TIME: 08/04/2018 12:46 pm; 08/04/2018 1:25 pm REASON FOR STUDY: LT BREAST N63.24 N63.24 UNSPECIFIED LUMP IN THE LEFT BREAST, LOWER INNER QUAD COMPARISON: 06/17/2018 TECHNIQUE: True lateral and cone compression views. LIMITATIONS: None. FINDINGS: BREAST: left MASSES: Mass with smooth borders in the lower outer quadrant about 4 cm from the nipple persists with cone compression. CALCIFICATIONS: No new or suspicious calcifications. ARCHITECTURAL DISTORTION: None. DEVELOPING DENSITY: None. ASYMMETRY: None noted. OTHER: No other significant findings. Ultrasound left breast demonstrates well-circumscribed hyperechoic nodule measuring about 1.0 x 2.0 c m. There are at least 2 other similar, smaller hyperechoic nodules. IMPRESSION: Nodules seen on the prior 07/01/2017 have increased in size. These could be papillomas h owever cannot exclude malignancy. BREAST DENSITY: b. There are scattered areas of fibroglandular density. BIRAD: 4 Suspicious. Biopsy should be considered. RECOMMENDATION: RECOMMENDED FOLLOW UP: Birads 4: Biopsy should be performed in the absence of clinic al contraindication. SPECIFIC INTERVENTION/IMAGING/CONSULTATION RECOMMENDED:The suspicious finding(s) amenable to US guide d core/vacuum assisted biopsy. COMMUNICATION:The imaging findings were not discussed with the patient. Her referring provider has be en notified of the findings. COMMENT: The patient has been notified of the results by letter per SA requirements. Additional no tification policies are in place for contacting patient with suspicious or incomplete findings. Quality ID #225: The [employer] recommends an annual screening mammogram for women aged 40 years or over. This facility utilizes a reminder system to ensure that all patients receive reminder letters, and/or direct phone calls for appointments. This includes reminders for routine scr eening mammograms, diagnostic mammograms, or other Breast Imaging Interventions when appropriate. Th is patient will be placed in the appropriate reminder system. The [employer] (ACR) has developed recommendations for screening MRI of the breast s in certain patient populations, to be used in conjunction with mammography. Breast MRI surveillanc e may be appropriate for women with more than 20% lifetime risk of developing breast cancer as deter mined by genetic testing, significant family history of the disease, or history of mantle radiation f or Hodgkins Disease. ACR Practice Guidelines 2008. TECHNICAL DOCUMENTATION: FINDING NUMBER: (1) ASSESSMENT: (1) JOB ID: [id number] [employer]- All Rights Reserved Reading location - IP/workstation name: [email or web address]
== END ==
LOC: WI 12:48
PROVIDERS: ATTEND Family Medicine
DX: N63.23 Unspecified lump in the left breast, lower outer quadrant (principal)
CPT/HCPCS: 76642

== ENCOUNTER → 2018-09-02 | Day surgery (SDC) | payer MEDICARE, OTHER ==
[~2018-09-02] MED LIST: LIDOCAINE 1% INJ-PF (10 MG/ML) 30 ML SDV ONE
--- NOTE | 2018-09-08 10:22 | WOMENS IMAGING REPORT ---
EXAM DESCRIPTION: U/S BREAST BX; LEFT DIG DX MAMMO NO CHG COMPLETED DATE/TIME: 09/02/2018 10:21 am; 09/02/2018 10:17 am REASON FOR STUDY: LEFT BREAST LUMP N63.23; S/P LEFT BREAST BX FOR CLIP PLACEMENT R92.2 N63.23 UNSPE CIFIED LUMP IN THE LEFT BREAST, LOWER OUTER QUAD COMPARISON: Mammograms and ultrasound 08/04/2018 TECHNIQUE: The procedure was discussed with the patient and the patient agreed to proceed. The patient was scanned and the area of interest in the left retroareolar 1.8 cm nodule with increase d echogenicity was localized was localized. This correlates with the area of concern on prior imagin g studies. This area was targeted for ultrasound-guided core biopsy. After sterile skin prep and 3 mL local lidocaine 1% for skin and deep tissue anesthesia, a 14 gauge c oaxial core biopsy needle was used to obtain several cores of tissue from the lesion. Under ultrasou nd guidance, a ribbon clip was placed in the areas sampled. There were no immediate post-procedure c omplications. MAMMOGRAM: Post-procedure two view mammogram was acquired in the digital mammogram suite. The clip wa s in the expected location. No significant hematoma. Pathology yields a diagnosis of benign breast tissue with chronic inflammation and fat necrosis. No atypia or malignancy identified Pathology is concordant. LIMITATIONS: None. FINDINGS: Ultrasound guided breast biopsy as described above. POST PROCEDURE MAMMOGRAMS FOR MARKER PLACEMENT: Yes IMPRESSION: ULTRASOUND-GUIDED CORE BIOPSY OF THE LEFT BREAST YIELDS A DIAGNOSIS OF BENIGN FAT NECROS IS IN THE RETROAREOLAR REGION. BI-RADS 2 Benign findings. COMMENT: PATIENT SHOULD CONTINUE YEARLY BILATERAL SCREENING MAMMOGRAPHY IN JULY 2019 COMMUNICATION: THESE FINDINGS WERE DISCUSSED WITH THE PATIENT'S DAUGHTER, 1330 HOURS 09/03/2018. Patient medication list reviewed: Yes- Quality ID# [id number]:Eligible professional attests to documenting i n the medical record they obtained, updated, or reviewed the patient's current medications. TECHNICAL DOCUMENTATION: JOB ID: [id number] [employer]- All Rights Reserved Reading location - IP/workstation name: [email or web address]
== END ==
LOC: WI 09:07
PROVIDERS: ATTEND Family Medicine
DX: N64.1 Fat necrosis of breast (principal); N61.0 Mastitis without abscess; N63.23 Unspecified lump in the left breast, lower outer quadrant; R92.2 Inconclusive mammogram
CPT/HCPCS: 88342 ×2; 88305 ×2; 19083; J3490

== ENCOUNTER → 2019-06-22 | Outpatient (CLI) | payer MEDICARE, OTHER ==
--- NOTE | 2019-06-23 11:02 | WOMENS IMAGING REPORT ---
EXAM DESCRIPTION: 3D SCREENING MAMMO BILAT COMPLETED DATE/TIME: 06/22/2019 1:56 pm REASON FOR STUDY: Z12.31 SCREENING MAMMO Z12.31 ENCNTR SCREEN MAMMOGRAM FOR MALIGNANT NEOPLASM OF B RE COMPARISON: Priors dating back to 2013 EXAM PARAMETERS: Standard craniocaudal and mediolateral oblique views of each breast recorded using digital acquisition and breast tomosynthesis. Read with the assistance of CAD. [facility] - R2 [employer] Version 9.2 LIMITATIONS: None. FINDINGS: Findings present which are benign by mammographic criteria. No suspicious masses, calcific ations or architectural distortion. Pertinent benign findings: Left fat necrosis. Benign mammographic findings may include one or more of the following: Smooth masses, popcorn/rim/coa rse calcifications, asymmetries, post-procedure changes, and lesions with long-standing stability. IMPRESSION: BENIGN MAMMOGRAPHIC FINDINGS. BIRADS 2 BREAST DENSITY: b. There are scattered areas of fibroglandular density. BIRAD: ASSESSMENT: 2 BENIGN FINDING(S) RECOMMENDATION: ROUTINE SCREENING COMMENT: The patient has been notified of the results by letter per SA requirements. Additional no tification policies are in place for contacting patient with suspicious or incomplete findings. Quality ID #225: The [employer] recommends an annual screening mammogram for women aged 40 years or over. This facility utilizes a reminder system to ensure that all patients receive reminder letters, and/or direct phone calls for appointments. This includes reminders for routine scr eening mammograms, diagnostic mammograms, or other Breast Imaging Interventions when appropriate. Th is patient will be placed in the appropriate reminder system. TECHNICAL DOCUMENTATION: FINDING NUMBER: (1) ASSESSMENT: (1) JOB ID: [id number] [employer]- All Rights Reserved Reading location - IP/workstation name: [email or web address]
== END ==
LOC: WI 13:00
PROVIDERS: ATTEND Family Medicine
DX: Z12.31 Encounter for screening mammogram for malignant neoplasm of breast (principal)
CPT/HCPCS: 77063; 77067

== ENCOUNTER → 2020-06-28 | Outpatient (CLI) | payer MEDICARE, OTHER | LOC: WI 10:00 | PROVIDERS: ATTEND Family Medicine | DX: Z12.31 Encounter for screening mammogram for malignant neoplasm of breast (principal) ==